=== PATIENT | male | born 1935 | race Caucasian/White ===

== ENCOUNTER 2023-12-04 07:15 | Outpatient (RCR) | payer MEDICARE, OTHER, SELFPAY | END 2023-12-04 09:12 | disposition home or self-care (01) | LOC: ANHCPREHAB 07:15 | PROVIDERS: PCP Internal Medicine | DX: Z95.2 Presence of prosthetic heart valve (principal) | CPT/HCPCS: 93798 ==

== ENCOUNTER 2025-05-13 07:06 | Observation (INO) | payer MEDICARE, OTHER, SELFPAY ==
[2025-05-13] VITALS (102 sets, daily range): BP systolic 97–141; BP diastolic 49–101; PULSE 60–224; RESP 14–33; TEMP 36.4–36.6; O2SAT 90–100; BMI 26.5
--- NOTE | ~2025-05-13 | XR_ITS ---
EXAMINATION: XR chest 1V portable COMPARISON: No comparisons available. HISTORY: RHONDA FINDINGS: Mild pulmonary venous congestion No pneumothorax. Mild cardiomegaly. Mediastinal and hilar contours are within normal limits. Bony thorax no acute abnormality. Miscellaneous: None Impression: Mild CHF Reviewed, dictated and finalized at location P. [employer]ICIAN Impression: Mild CHF
--- NOTE | 2025-05-13 07:21 | ECG_ITS ---
Test Date: 2025-05-13 07:22:40 Measurements Intervals Lucan Rate: 76 P: 48 DE: 206 QRS: -34 QRSD: 105 T: 71 QT: 368 QTc: 416 Interpretive Statements SINUS RHYTHM WITH FREQUENT SUPRAVENTRICULAR PREMATURE COMPLEXES LEFT AXIS DEVIATION BORDERLINE AV CONDUCTION DELAY CANNOT R/O SEPTAL INFARCT, AGE INDETERMINATE BORDERLINE ST-T WAVE ABNORMALITY- HIGH LATERAL LEADS BASELINE ARTIFACT- I, II, AVR, AVL, AVF, V4-V6 ABNORMAL ECG No previous ECG available for comparison Electronically Signed On 05-13-2025 07:55:10 AIR POLLUTION ANALYST by Iban Guy D.O.
[2025-05-13] MEDS: ETOMIDATE 20 MG/10 ML AMPUL (07:24)
[2025-05-13 07:37] LABS: Hematocrit 42.9 % (42.0-52.0); Hemoglobin 14.2 g/dL (14.0-18.0); Immature Granulocyte Percent A 0.7 % (0-0.5); Lymphocytes Absolute Auto 1.75 K/mm3 (0.9-3.2); Mean Corpuscular HGB Conc 33.1 g/dl (32-36); Mean Corpuscular Hemoglobin 31.7 pg (26-34); Mean Corpuscular Volume 95.8 fl (80-100); Nucleated Red Blood Cells Absolute Auto 0.000 K/mm3 (0.0-0.012); Nucleated Red Blood Cells Perc 0.0 % (0.0-0.2); Platelet Count Result 204 k/mm3 (150-375); Red Blood Count 4.48 M/mm3 (4.6-6.20); White Blood Count 8.3 K/mm3 (4.5-10.0)
--- NOTE | 2025-05-13 07:39 | PC.NURSE ---
upon arrival to the ED patient was placed on facility examiner where he was noted to have a heart rate in the 220s with runs of vtach. Patient was attached to lifepack with pads. EDP at bedside verbally ordered 10mg etomodate. patient was shocked with 150J at 0719. patient is currently awake and alert and oriented x 4 with a heart rate of 87, bp 109/71, respiratory rate of 14, spo2 97%. family at bedside at this time and given an update to care and patient condition
[2025-05-13 07:48] LABS: INR 1.3; Prothrombin Time 16.1 Seconds (11.1-14.7)
[2025-05-13 07:49] LABS: Partial Thromboplastin Time 31.4 Seconds (22.3-36.8)
[2025-05-13 08:14] LABS: Alanine Aminotransferase 28 U/L (6-50); Albumin Level 4.0 g/dL (3.5-5.1); Alkaline Phosphatase 77 U/L (38-126); Anion Gap 7 mmol/L (4-12); Aspartate Amino Transferase 29 U/L (17-59); Bilirubin,Total 0.6 mg/dL (0.2-1.3); Blood Urea Nitrogen 42 mg/dL (9-20); Calcium 8.9 mg/dL (8.4-10.2); Carbon Dioxide 20 mmol/L (22-30); Chloride 110 mmol/L (98-107); Estimated CRCL calculation 32 ml/min; Estimated Glomerular Filt Rate 43; Glucose 145 mg/dL (65-110); Potassium 3.8 mmol/L (3.4-5.0); Sodium 137 mmol/L (137-145); Total Protein 7.0 g/dL (6.3-8.2)
[2025-05-13 08:47] LABS: NT Pro B Type Natriuretic Pept 9200 pg/mL (19.9-100); Troponin I 0.147 ng/mL (0.000-0.034)
--- OUTSIDE RECORDS SUMMARY | 2025-05-13 08:47 | XMS_ITS | Clinical Summary ---
Author Organization [facility] Address [address] [place] [address] Care Team Providers Care Food And Nutrition Teacher Name Role Phone Georges Barfield MD Primary Care Provider Michelet Campos MD Unavailable [phone] Evangelista Cartagena DO Unavailable [phone] Source Comments [facility],non-owned Affiliates and Associated Physician Practices is amultiple site organization consisting of ambulatory clinics and hospital sitesin [place], [place], [place] and [place]. This disclosure is being madepursuant to the Care Everywhere program and may not contain all information available regarding this patient. Last updated 18.[facility] Allergies Active Allergy Reactions Criticality Noted Date Comments Barley Grass 09/01/2013 Gluten Meal Diarrhea Low 03/08/2020 Wheat Bran 09/01/2013 Medications * Be aware that medications may not be up to date on this document. Alwaysverify current medications with the patient. VITAMIN D, CHOLECALCIFEROL, PO Take 1,000 Units by mouth once daily Active cyanocobalamin (VITAMIN B-12) 100 MCG tablet Take 100 mcg by mouth once daily. Active calcium-vitamin D (CALTRATE PLUS D) 600-200 MG-UNIT tablet Take 1 Tab by mouth 2 times daily Active calcium polycarbophil (FIBERCON) 625 MG tablet Take 625 mg by mouth at bedtime Active metoprolol tartrate (LOPRESSOR) 25 MG tablet Take 12.5 mg by mouth 2 times daily Active acetaminophen (TYLENOL) 500 MG tablet Take 500 mg by mouth 2 times daily as needed for Fever or Pain Maximum allowable Acetaminophen amount = 4 Grams (4000 mg) / 24 hours. Active Cinnamon 500 MG Take 500 mg by mouth 2 times daily Active famotidine (PEPCID) 40 MG tablet 08/25/19 22 Active simvastatin (ZOCOR) 40 MG tablet 1 tablet at bedtime 05/03/20 21 Active Melatonin 5 MG 11/09/19 21 Active Kalida-3 1000 MG 2 times daily Active traMADol (ULTRAM) 50 MG tablet 12/08/19 21 Active tamsulosin (FLOMAX) 0.4 MG capsule 08/25/19 22 Active gabapentin (Neurontin) 100 MG capsule Take 1 (one) capsule by mouth 3 times daily 02/04/20 24 Active lisinopril (Prinivil; Zestril) 40 MG tablet Take 1 (one) tablet by mouth once daily 02/03/20 24 Active omeprazole (PriLOSEC) 40 MG capsule 1 (one) capsule 05/30/20 23 Active meloxicam (Mobic) 15 MG tablet Take 1 (one) tablet by mouth once daily 30 tablet 5 06/30/19 25 Active Active Problems Problem Noted Date Diagnosed Date Left sided sciatica 10/04/2021 Hip pain 10/04/2021 Presence of right artificial knee joint 05/27/20 18 Primary osteoarthritis of right knee 06/20/2015 Osteoarthrosis involving lower leg 09/01/2013 Overview (09/03/2015): 2015 [facility] 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 Overview (09/03/2015): 2015 [facility] Social History Tobacco Use Types Packs/Day Years Used Date Smoking Tobacco: Former Cigarettes 0 Q uit: 06/10/1979 Smokeless Tobacco: Never Tobacco Cessation:Counseling Given: Not Answered Alcohol Use Standard Drinks/Week Comments Yes 10 (1 standard drink = 0.6 oz pu re alcohol) 10/week PHQ-2 Answer Date Recorded Patient Health Questionnaire-2 Score 0 06/30/2024 Sex and Gender Information Value Date Recorded Sex Assigned at Not on file Legal Sex Male 10:25 AM INFUSION RN Gender Identity Not on file Sexual Orientation Not on file Last Filed Vital Signs Vital Sign Reading Time Taken Comments Blood Pressure 155/74 05/28/2015 7:38 AM INFUSION RN Pulse 86 05/28/2015 7:38 AM INFUSION RN Temperature 36.8 C (98.3 F) 05/28/2015 7:38 AM INFUSION RN Respiratory Rate 20 05/28/2015 7:38 AM INFUSION RN Oxygen Saturation 91% 05/28/2015 7:38 AM INFUSION RN Inhaled Oxygen Concentration - - Weight 89.8 kg (198 lb) 06/30/2024 11:17 AM INFUSION RN Height 180.3 cm (5' 11) 06/30/2024 11:17 AM INFUSION RN Body Mass Index 27.62 06/30/2024 11:17 AM INFUSION RN Plan of Treatment Health Maintenance Due Date Last Done Comments MEDICARE AWV 12 MONTHS 1936 DTAP/TDAP/TD VACCINES (1 - Tdap) 09/22/1955 PNEUMOCOCCAL VACCINE 50+ (1 of 1 - PCV) 1986 ZOSTER VACCINE (1 of 2) 1986 Respiratory Syncytial Virus (RSV) Vaccine Pt: or over 60 yrs (1 - 1-dose 75+ series) 09/22/2011 COVID-19 VACCINE ( season) 2025 03/08/2021, 08/16/2020, 07/19/2020 INFLUENZA VACCINE (#1) 2025 , 04/07/2019, 03/20/2018, Additional history exists DEPRESSION SCREENING Completed 06/30/2024 HEPATITIS B VACCINE Aged Out No longe r eligible based on patient's age to complete this topic HIB VACCINE Aged Out No longer eligi ble based on patient's age to complete this topic HPV VACCINE Aged Out No longer eligi ble based on patient's age to complete this topic MENINGOCOCCAL (Group B) VACCINE SHARED DECISION-MAKING Aged Out No longer eligible based on patient's age to complete this topic MENINGOCOCCAL GROUPS A/C/Y/W VACCINE Aged Out No longer eligible based on patient's age to complete this topic Medical Devices Implanted Type Area Presiding Steward Device Identifier Shelf Expiration Date Model / Serial / Lot Valentin [employer] [place] Hv Implanted:Qty: 1 on 05/26/2015 by Michelet Campos MD at [facility] Right: Knee [employer] 01/07/2017 [id number] / / [id number] Implt Fem Cr R 72.5mm Implanted:Qty: 1 on 05/26/2015 by Michelet Campos MD at [facility] Right: Knee [employer] 03/30/2025 [id number] / / [id number] Ty Tibial I Beam Fix Bar 83mm Implanted:Qty: 1 on 05/26/2015 by Michelet Campos MD at [facility] Right: Knee [employer] 02/07/2025 [id number] / / [id number] Butn Pat Ar[employer] Wire Polyeth Sm 31 X 8mm Implanted:Qty: 1 on 05/26/2015 by Michelet Campos MD at [facility] Right: Knee [employer] 02/10/2020 [id number] / / [id number] Bridg Tib Ant Stblzd 12mm X 83mm Implanted:Qty: 1 on 05/26/2015 by Michelet Campos MD at [facility] Right: Knee [employer] 06/20/2019 [id number] / / [id number] [place] [address] MEDICARE Advance Directives Documents on File Type Date Recorded Patient Database Technician Expl anation Adv Directive/Living Will/POA 05/30/2015 2:46 PM * Full Code (Latest Code Status on File) Date Activated Date Inactivated Comments 05/26/2015 11:57 AM 05/28/2015 12:51 PM Care Teams Food And Nutrition Teacher Relationship Specialty Start Date End Date Georges Barfield MD [address] [place], [id number] PCP - General Internal Medicine 09/01/13 [place] [address] [place] [id number] Orthopedic Surgery 09/01/13 [place] [address] [place] [id number] Orthopedic Surgery 12/01/14
--- OUTSIDE RECORDS SUMMARY | 2025-05-13 08:47 | XMS_ITS | Clinical Summary ---
Author Organization [facility] Address [address] [place] [address] Care Team Providers Care Corporate General Manager Name Role Phone Georges Barfield MD Primary Care Provider [phone] Lilia Welsh MD Unavailable [phone] Celena Kitchen MD Unavailable Kg Marie MD Unavailable [phone] Allergies Active Allergy Reactions Criticality Noted Date Comments Gluten Diarrhea Low Medications cyanocobalamin (Vitamin B-12) 1,000 mcg tablet Take 1 tablet (1,000 mcg total) by mouth daily Active polycarbophil (FIBERCON) 625 mg tablet Take 1 tablet (625 mg total) by mouth nightly Active cholecalciferol (VITAMIN D-3) 25 mcg (1,000 unit) tablet Take 1 tablet (1,000 Units total) by mouth daily Active omega 1-edx-rvd-fish oil 1,000 mg (120 mg-180 mg) capsule Take 1 capsule (1,000 mg total) by mouth 2 (two) times a day Active fluocinonide (LIDEX) 0.05 % external solution Apply 1 Application topically daily as needed 11/22/19 22 Active ketoconazole (NIZORAL) 2 % shampoo Apply 1 Application topically daily as needed 01/16/20 23 Active amoxicillin (AMOXIL) 500 mg tablet/capsuleIndi cations:Prophylaxi s, Medical Take 4 caps (2000 mg) 1 hour prior to any dental appointment including routine cleaning. 8 tablet/caps ule 2 07/30/19 24 Active Mobic 15 mg tablet Take 1 tablet (15 mg total) by mouth Daily for 1 week of the month 06/30/19 25 Active omeprazole (PriLOSEC) 40 mg capsuleIndications :Gastroesophageal reflux disease without esophagitis Take 1 capsule (40 mg total) by mouth daily 90 capsule 3 10/03/19 25 Active gabapentin (NEURONTIN) 100 mg capsuleIndications :Cervical spondylosis Take 1 capsule (100 mg total) by mouth 3 (three) times a day 270 capsule 3 10/03/19 25 Active calcium carbonate-vit D3-min 600 mg calcium- 200 unit tablet Take 1 tablet by mouth 2 (two) times a day Active apixaban (ELIQUIS) 5 mg tabletIndications: atrial fibrillation Take 1 tablet (5 mg total) by mouth every 12 (twelve) hours 180 tablet 2 11/14/19 25 Active metoprolol XL (TOPROL-XL) 25 mg extended release tablet Take 1 tablet (25 mg total) by mouth daily 30 tablet 11 12/04/19 25 026 Active metroNIDAZOLE (METROGEL) 0.75 % gelIndications:Acn e Rosacea Apply twice daily to rosacea 45 g 5 02/02/20 25 026 Active tamsulosin (FLOMAX) 0.4 mg extended release capsuleIndications :Benign prostatic hyperplasia with weak urinary stream Take 1 capsule (0.4 mg total) by mouth nightly 90 capsule 3 02/02/20 25 Active Additional Information Patient not taking.Reported on 02/03/2025 simvastatin (ZOCOR) 20 mg tabletIndications: Hyperlipidemia, unspecified hyperlipidemia type Take 1 tablet (20 mg total) by mouth nightly 90 tablet 3 02/02/20 25 Active lisinopriL (PRINIVIL,ZESTRIL) 40 mg tabletIndications: Primary hypertension Take 1 tablet (40 mg total) by mouth daily 90 tablet 3 02/02/20 25 Active furosemide (LASIX) 20 mg tablet Take 1 tablet (20 mg total) by mouth daily 90 tablet 3 02/06/20 25 Active budesonide EC (ENTOCORT EC) 3 mg 24 hr capsuleIndications :Acute diarrhea,Microscop ic colitis, unspecified microscopic colitis type Take 3 capsules (9 mg total) by mouth every morning for 30 days, THEN 2 capsules (6 mg total) every morning for 14 days, THEN 1 capsule (3 mg total) every morning for 7 days. 125 capsule 02/23/20 25 Active finasteride (PROSCAR) 5 mg tablet TAKE 1 TABLET BY MOUTH NIGHTLY AT BEDTIME. 90 tablet 03/22/20 25 Active cholestyramine (QUESTRAN) 4 gram packetIndications: Microscopic colitis, unspecified microscopic colitis type Take 5 packets by mouth daily Take 5 packets by mouth daily No other medications within an hour before or 4 hours after. 150 packet 5 04/26/20 25 026 Active cholestyramine (QUESTRAN) 4 gram packetIndications: Microscopic colitis, unspecified microscopic colitis type Take 5 packets by mouth daily Take 5 packets by mouth daily No other medications within an hour before or 4 hours after. 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 From an anatomic perspective, Mr. Chambers has a OBDULIA-candidate mitral valve. We can't comment on the surgical feasibility off > 90% but given his age and comorbidity it is unlikely we go down the surgical MV repair for asymptomatic severe MR. The symptoms status is the crux of the issue here, as it is unclear whether he is asymptomatic at all. His exertional tolerance has been stable subjectively. We did elicit some PND but no other symptoms concerning for CHF. As such, we elect to not proceeding with OBDULIA at this point. We will continue to monitor his symptoms and LV systolic function/morphology in a few months. If he were to develop definitive symptoms or drop in LVEF/increased LV dimensions then we will consider OBDULIA at that point. Right knee injury, sequela 03/18/2020 Assessment & Plan (03/18/2020 9:21 AM CDT): - PT ordered and sent - Increase the tylenol to 600mg every 8 hours (three times a day) - cont the Voltaren 4 times a day Use Ice three times a day - Use stretching three times a day Musculoskeletal Pain Assessment: Musculoskeletal in nature, likely muscle spasm or muscle strain. Reassuring exam, no red flags, no role for imaging at this time. Musculoskeletal Pain Plan: Musculoskeletal types of injuries do best with daily around the clock treatment and can persist for roughly 4-6 weeks. Do not overuse the area of concern and utilize the the symptom management below. If you are not bit by bit better in 4-6 weeks please make a return visit for follow-up for the next steps. Physical Therapy/Imaging and other testing or therapy will be done on an individual basis as needed. For more help with stretching/exercises check out [facility] exercises via Youtube. Symptom management includes: -Tylenol (acetaminophen) 1000mg every 8 hours as needed for pain. Do not use when drinking alcohol as both metabolize through the liver. (Max dose is 600mg every 8 hours) Consistency is patel, but try NOT to use more than 3 weeks at at time. (Only use the dose you need for the control of the pain- if 325mg every 8 hours works then use the 325mg every 8 hours). - Diclofenac gel to be used topically as needed on affected area for pain - Rest area. If it hurts do not continue to do that activity, do not overexert, but stay as physically active as possible. Your muscles will stiffen up if you do not use them. - Heat and/or Ice to the area at least twice a day for 20 minutes. Doing this more often is encouraged. Typically will use Heat for muscle spasms and Ice with joints and swelling, but either or both can be used depending on your preference. (Check into the heat stick on patches at our pharmacy as these can be very convenient). If you use a heating pad, great- just do not sleep with the heating pad as it may burn you. - Continue to do gentle stretching exercises at least twice a day, best if after the heat/ice application. - Can use Biofreeze or [place], sold over the counter, follow directions on the medication. 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 DRIVER): History of PSVT-F/W Dr Welsh On metoprolol Monitor on telemetry Primary osteoarthritis of right knee 06/20/2015 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 Overview (12/30/2017): Overview: 2015 IMO Updt Interstitial cystitis 07/24/2013 Gastroesophageal reflux disease without esophagi tis 05/25/2013 Assessment & Plan (06/24/2023 8:29 AM 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 DRIVER): Continue PPI Hyperlipidemia 05/25/2013 Assessment & Plan (06/24/2023 8:29 AM 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 DRIVER): Continue statin Primary hypertension 05/25/2013 Assessment & Plan (06/24/2023 8:29 AM 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 DRIVER): Goal SBP <160 and MAP >65 Restart lisinopril and toprol as BP allows Osteopenia 05/25/2013 Exomphalos 12/01/2012 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 Celiac disease 03/14/2012 Bronchiectasis without complication Resolved Problems Problem Noted Date Diagnosed Date Resolved Date New onset a-fib 11/12/2024 02/01/2025 Atrial fibrillation with RVR 07/03/2024 08/03/2024 Encounters Date Type Department Care Team Description 05/12/2025 Telephone [facility] Cardiology [address] [place] [address] [place] [address] Kg Marie MD Shortness of Breath 02/26/2025 9:00 AM CDT Procedure visit [facility] Otolaryngology [address]th [place] [address] [place] [phone] Zuleyka Jean Baptiste Au.D. Asymmetrical sensorineural hearing loss (Primary Dx) 02/22/2025 Orders Only [facility] Gastroenterology [address] [place] [address] [address] [place] [address] [place] [phone] Marleny aVsquez LPN Acute diarrhea (Primary Dx); Microscopic colitis, unspecified microscopic colitis type 02/19/2025 8:15 AM CDT Lab [address] [address] Acute diarrhea 02/18/2025 Telephone [facility] Gastroenterology [facility] [facility] [address] [place] [address] [place] [phone] Marleny Vasquez LPN from Last 3 Months Immunizations Immunization Administration Dates Next Due Influenza, Quad, Adjuvantate d, Intramuscular 03/15/2023,04/02/2022 Influenza, Quadrivalent, Hig h Dose, Preservative Free, Intrr 03/08/2021,03/30/2020 Influenza, Trivalent, Adjuva nted, Intramuscular 03/20/2018 Influenza, Trivalent, High D ose, Split, Preservative Free, Intramuscular 04/07/2019,02/29/2016,04/01/2015 Influenza, Trivalent, Preser vative Free, Intramuscular 04/04/2013 Influenza, Unspecified 03/30/2024,03/15/2023 PPD TEST 08/16/2016 Pfizer SARS-CoV-2 Monovalent Vaccination (12+ Yrs) PURPLE 03/08/2021,08/16/2020,07/19/2020 Pneumococcal Conjugate PCV 13 12/30/2014 Pneumococcal Conjugate Pcv20 05/14/2023 Pneumococcal Polysaccharide PPV23 06/10/2002 RSV Vaccine, Pref, Recombina nt, Subunit, Adjuvanted, PF, IM (Arexvy) 04/19/2023 Tdap 08/05/2023,01/29/2013,06/09/1999 ZOSTER LIVE 08/06/2011,05/25/2011,05/10/2011 ZOSTER Recombinant 06/24/2019,01/30/2019 Surgical History Surgery Date Site/Laterality Comments MA TONSILLECTOMY PRIMARY/SECONDARY <AGE 12 TOTAL KNEE ARTHROPLASTY Right CATARACT EXTRACTION Bilateral UMBILICAL HERNIA REPAIR HYDROCELE EXCISION / REPAIR Right Medical History Medical History Date Comments HL (hearing loss) Hypertension Atrial fibrillation (HCC) BPH (benign prostatic hyperplasia) SKY (obstructive sleep apnea) Mitral regurgitation Hyperlipidemia Awareness under anesthesia PFO (patent foramen ovale) CKD (chronic kidney disease) stage 2, GFR 60-89 ml/min 11/12/2024 Family History Medical History Relation Name Comments Celiac disease Brother Diabetes type I Daughter Hypothyroidism Daughter Rheum arthritis Daughter Hypothyroidism Grandchild Colon cancer Mother Celiac disease Son Diabetes type I Son Anesthesia problems Neg Hx Relation Name Status Comments Brother Daughter Grandchild Alive Mother Son Social History Tobacco Use Types Packs/Day Years Used Date Smoking Tobacco: Former Cigarettes 1 31 1 957 - 1987 Smokeless Tobacco: Never Tobacco Cessation:Counseling Given: Not Answered Alcohol Use Standard Drinks/Week Comments Yes 2 (1 standard drink = 0.6 oz pur e alcohol) PHQ-2 Answer Date Recorded PHQ-2 Total Score (If total score is 3 or more points, staff should administer the PHQ-9) 0 01/25/2025 AUDIT-C Answer Date Recorded Q1: How often do you have a drink containing alc ohol? 2-3 times a week 02/01/2025 Q2: How many drinks containi ng alcohol do you have on a typical day when you are drinking? 1 or 2 02/01/2025 Frequency of Binge Drinking Not on file 01/09 Personal Safety Answer Date Recorded Have you ever been in or are you currently in a harmful physical or emotional relationship or is someone making you feel afraid or unsafe? 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 Not on file Not on file N ot on file Last Filed Vital Signs Vital Sign Reading Time Taken Comments Blood Pressure 140/80 02/03/2025 9:18 AM CDT Pulse 61 02/03/2025 9:18 AM CDT Temperature 36.8 C (98.3 F) 11/13/2024 12:28 PM CDT Respiratory Rate 16 11/13/2024 12:28 PM CDT Oxygen Saturation 98% 02/03/2025 9:18 AM CDT Inhaled Oxygen Concentration - - Weight 89.8 kg (198 lb) 02/03/2025 9:18 AM CDT Height 180.3 cm (5' 11) 02/01/2025 8:21 AM CDT Body Mass Index 27.62 02/01/2025 8:21 AM CDT Plan of Treatment Health Maintenance Due Date Last Done Comments Hepatitis B Screening 1953 Covid-19 Vaccine (2024- 6 season) 2025 03/23/2024, 03/15/2023, 04/02/2022, Additional history exists Depression Screening 02/01/2026 02/01/2025, 02/03/20 Fall Risk Assessment 02/01/2026 02/01/2025, 11/13/2024, 02/03/2024 Well Visit 65+ 02/01/2026 02/01/2025, 01/09, 01/21/2023, Additional history exists DTaP/Tdap/Td Vaccine (4 - Td or Tdap) 08/05/2033 08/05/2023, 01/29/2013, 06/09/1999 Zoster Vaccine Completed 06/24/2019, 01/09, 08/06/2011, Additional history exists Pneumococcal vaccine 65+ Completed 023, 12/30/2014, 06/10/2002 Influenza Vaccine Completed 03/12/2025, , 03/15/2023, Additional history exists Goals Goal Patient Goal Type Associated Problems Recent Progress Patient-Stated? Author CCM Chronic Pain Care Plan Chronic Care Management No Brendel, Sharifa Jennifer, RN Note: Problem: Chronic Pain Goals: 1. Minimize further functional decline 2. Maximize quality of life 3. Control pain Strategies: - Activity/exercise program recommendation - Conservative stepwise pain medicine strategy with multi-disciplinary approach - Recommend healthy lifestyle strategies and compensatory methods as needed Medical Devices Implanted Type Area Enterprise Architect Manager Device Identifier Shelf Expiration Date Model / Serial / Lot [employer] Mitraclip G4 Xtw Cardiac Valve Clip [id number] - [id number] - [id number] Implanted:Qty : 1 on 06/24/2023 by Kg Marie MD at [facility] Clip N/A: Mitral Valve [employer] 10/31/2023 [id number] / [id number] / [id number] Other - See Comments Other - see comments Right: Knee [employer] Device Clsr Perclose Prostyle Sut-Mediatd Closure-Repai r Sys [id number] - [id number] - [id number] Implanted:Qty : 1 on 06/24/2023 by Kg Marie MD at [facility] Vascular Closure Device Left: Femoral Vein [employer] 01/07/2025 [id number] / [id number] / [id number] [employer] Mitraclip Implant G4 System [id number] - [id number] Implanted:Qty : 1 on 06/24/2023 by Kg Marie MD at [facility] N/A: Mitral Valve [employer] [id number] / / Procedures Procedure Name Priority Date/Time Associated Diagnosis Comments STOOL CULTURE Routine 02/19/2025 8:45 AM CDT Acute diarrhea C. DIFFICILE TESTING Routine 02/19/2025 8:45 AM CDT Acute diarrhea from Last 3 Months Results * C. difficile testing Stool (02/19/2025 8:45 AM CDT) C. diff result Negative, DNA Negative , DNA C. diff interp Negative for toxigenic Clostridioides (Clostridium) difficile. Analysis performed by detection of gene(s) encoding C. difficile toxin(s). The nucleic acid detection assay used is cleared by the [place] Food and Drug administration and its performance characteristics have been verified by the performing laboratory. NUSRAT GUTIERREZ Stool 02/19/2025 8:45 AM CDT 02/19/2025 11:17 AM CDT Keenan Ley MD LAB MICROBIOLOGY - [facility] Final Result Performing Organization Address [facility] Co de Phone Number NUSRAT [address] [facility] [place] [address] * Stool culture Stool Rectum (02/19/2025 8:45 AM CDT) Direct Specimen Exam Shiga Toxin Testing: Antigen detection assay for Shiga-toxin NEGATIVE for Shiga Toxin 1 and Shiga Toxin 2. Comment:Testing performed by : [facility], [address] [place] [address]., [id number] Report Final Report: No growth of enteric bacterial pathogens NUSRAT Comment:Testing performed by : [facility], [address] [place]., [address] Stool (Rectum) 02/19/2025 8: 45 AM CDT 02/20/2025 11:01 AM CDT Narrative NUSRAT - 02/24/2025 12:30 PM CDT Testing performed by [facility] Microbiology Laboratory ([phone]). Routine stool cultures include procedures to detect Salmonella, Shigella, Edwardsiella, Aeromonas, Pleisiomonas, Campylobacter, Yersinia, E. coli O157, and Shiga-like toxins. Vibrio is cultured only upon special request. If Vibrio is suspected, please call the laboratory at [phone]. Interpretive data was last updated October 15, 2016. Keenan Ley MD LAB MICROBIOLOGY - [facility] Final Result Performing Organization Address City/[facility]/ZIP Co de Phone Number NUSRAT [address] [place] [address] [place] [address] from Last 3 Months Insurance MEDICARE FOR LIFE MEDICARE FOR LIFE MEDICARE FOR LIFE FOR LIFE MEDICARE MEDICARE FOR [facility]IC[facility] FOR LIFE Advance Directives For more information, please contact: [phone] * Full Code (Latest Code Status on File) Date Activated Date Inactivated Comments 11/12/2024 5:33 PM 11/13/2024 5:30 PM * Full Code Date Activated Date Inactivated Comments 06/25/2023 8:18 AM 06/25/2023 7:17 PM Care Teams Corporate General Manager Relationship Specialty Start Date End Date Georges Barfield MD PCP - General 01/03/17 Lilia Welsh MD Referring Physician Cardiology 08/30/21 Celena Kitchen MD Surgeon Cardiothoracic Surgery 06/25/23 Kg Marie MD Consulting Physician Cardiology 06/25/23
--- OUTSIDE RECORDS SUMMARY | 2025-05-13 08:47 | XMS_ITS | Encounter Summary ---
Author Organization [facility] Address [address] [place] [address] Care Team Providers Care Tile Applicator Name Role Phone Georges Barfield MD Primary Care Provider [phone] Lilia Welsh MD Unavailable [phone] Celena Kitchen MD Unavailable Kg Marie MD Unavailable [phone] Encounter Details Date Type Department Care Team (Late st Contact Info) Description 11/19/2024 Documentation [facility] [address] [address] Georges Barfield MD [address] [place] [id number] Social History Tobacco Use Types Packs/Day Years Used Date Smoking Tobacco: Former Cigarettes 31 1 957 - 1988 Smokeless Tobacco: Never Alcohol Use Standard Drinks/Week Comments Yes 10 (1 standard drink = 0.6 oz pu re alcohol) AUDIT-C Answer Date Recorded Q1: How often do you have a drink containing alc ohol? 2-3 times a week 06/24/2023 Q2: How many drinks containi ng alcohol do you have on a typical day when you are drinking? 1 or 2 06/24/2023 Q3: How often do you have si x or more drinks on one occasion? Never 06/24/2023 PHQ-2 Answer Date Recorded PHQ-2 Total Score (If total score is 3 or more points, staff should administer the PHQ-9) 0 01/30/2024 Personal Safety Answer Date Recorded Have you ever been in or are you currently in a harmful physical or emotional relationship or is someone making you feel afraid or unsafe? 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 Author CCM Chronic Pain Care Plan Chronic Care Management Sharifa Mathews RN Note: Problem: Chronic Pain Goals: 1. Minimize further functional decline 2. Maximize quality of life 3. Control pain Strategies: - Activity/exercise program recommendation - Conservative stepwise pain medicine strategy with multi-disciplinary approach - Recommend healthy lifestyle strategies and compensatory methods as needed documented as of this encounter Visit Diagnoses Not on filedocumented in this encounter Additional Health Concerns Infection Onset Date Last Indicated Resolved Time C. difficile suspected 02/18/2025 02/19/202502/19 12:28 PM CDT documented as of this encounter Care Teams Tile Applicator Relationship Specialty Start Date End Date Georges Barfield MD PCP - General 01/03/17 Lilia Welsh MD Referring Physician Cardiology 08/30/21 Celena Kitchen MD Surgeon Cardiothoracic Surgery 06/25/23 Kg Marie MD Consulting Physician Cardiology 06/25/23 documented as of this encounter
--- OUTSIDE RECORDS SUMMARY | 2025-05-13 08:47 | XMS_ITS | Encounter Summary ---
Author Organization [facility] Address [address] [place] [address] Phone Care Team Providers Care Warehouse Insulation Worker Name Role Phone Georges Barfield MD Primary Care Provider [phone] Lilia Welsh MD Unavailable [phone] Celena Kitchen MD Unavailable Kg Marie MD Unavailable [phone] Reason for Visit * Reason Onset Date Comments Shortness of Breath 05/12/2025 Encounter Details Date Type Department Care Team (Late st Contact Info) Description 05/12/2025 Telephone [facility] Medicine Cardiology [address] [facility] Advanced Medicine 8th [place] [address] [place] [address] Kg Marie MD [address] [place] [address] Shortness of Breath Social History Tobacco Use Types Packs/Day Years Used Date Smoking Tobacco: Former Cigarettes 31 1 957 - 1987 Smokeless Tobacco: Never Alcohol Use Standard Drinks/Week Comments Yes 2 [...] on file Legal Sex Male 2:09 AM SENIOR SCIENTIST Gender Identity Male 06/29/2019 9:50 PM SENIOR SCIENTIST Sexual Orientation Straight 06/29/2019 9: 50 PM SENIOR SCIENTIST Occupation Industry Job Start Date Job End Date 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 Told to call back if not being seen and/or new or increasingsymptoms OR SCIENTIST * Telephone Encounter - Thuy Miner RN - 05/12/2025 11:51 AM SENIOR SCIENTIST S/w Dr. Marie about patient in clinic- fu pcp to investigate new onset SOB yestreday OR SCIENTIST * Telephone Encounter - Thuy Miner RN - 05/12/2025 10:46 AM SENIOR SCIENTIST S/w patient 05/11 around 1300 really SOB- eating lunch, shoveling snow in am but was not fatigued. Worsening SOBthrough day and Insomnia. Exercises religiously 3 week. No BP readings, apple watch-HR was up but not over 100. 05/12 SOB not near as bad today as yesterday evening. Wt-He has not checked weights daily- 2-3 x week. Staying around 190 no signs of swelling. Normal urination with Lasix. Insomnia-He thinks circadian rhythm off- insomnia throwing off his days. No diet, med changes, or recent testing/procedures. OR SCIENTIST * Telephone Encounter - Yokasta Espinoza - 05/12/2025 10:10 AM CST Cynthia Pt states he started to feel SOB yesterday and it got worse throughout the afternoon, then this morning was better but still feels a little short. Please call. OR SCIENTIST documented in this encounter Plan of Treatment Not on file documented as of this encounter Goals Goal Patient Goal Type Associated Problems Recent Progress Patient-Stated? Author CCM Chronic Pain Care Plan Chronic Care Management No Sharifa Arthur RN Note: Problem: Chronic Pain Goals: 1. Minimize further functional decline 2. Maximize quality of life 3. Control pain Strategies: - Activity/exercise program recommendation - Conservative stepwise pain medicine strategy with multi-disciplinary approach - Recommend healthy lifestyle strategies and compensatory methods as needed documented as of this encounter Visit Diagnoses Not on filedocumented in this encounter Care Teams Warehouse Insulation Worker Relationship Specialty Start Date End Date Georges Barfield MD PCP - General 01/03/17 Lilia Welsh MD Referring Physician Cardiology 08/30/21 Celena Kitchen MD Surgeon Cardiothoracic Surgery 06/25/23 Kg Marie MD Consulting Physician Cardiology 06/25/23 documented as of this encounter
--- OUTSIDE RECORDS SUMMARY | 2025-05-13 08:47 | XMS_ITS | Encounter Summary ---
Author Organization [facility] Address [address] [place] [address] Care Team Providers Care Surface Miner Name Role Phone Georges Barfield MD Primary Care Provider [phone] Lilia Welsh MD Unavailable [phone] Celena Kitchen MD Unavailable Kg Marie MD Unavailable [phone] Reason for Visit * Reason Onset Date Comments Med Refill 12/31/2023 Encounter Details Date Type Department Care Team (Late st Contact Info) Description 12/31/2023 Telephone [facility] [place] [facility] [address] [facility] Advanced Medicine [address] [place] [address] Melanie Ann MD PhD [address] [place] [address] Med Refill Social History Tobacco Use Types Packs/Day Years Used Date Smoking Tobacco: Former Cigarettes 31 957 - 1987 Smokeless Tobacco: Never Alcohol [...] more drinks on one occasion? Never 06/24/2023 Personal Safety Answer Date Recorded Have you ever been in or are you currently in a harmful physical or emotional relationship or is someone making you feel afraid or unsafe? 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
--- OUTSIDE RECORDS SUMMARY | 2025-05-13 08:47 | XMS_ITS | Encounter Summary ---
Author Organization [facility] Address [address] [place] [address] Care Team Providers Care Food And Beverage Associate Name Role Phone Georges Barfield MD Primary Care Provider Michelet Campos MD Unavailable [phone] Evangelista Cartagena DO Unavailable [phone] Encounter Details Date Type Department Care Team (Late st Contact Info) Description 06/09/2016 Therapy Visit [facility] Orthopedics [address] [facility] [address] [place] [address] [place] [address] [address] Social History Tobacco Use Types Packs/Day Years Used Date Smoking Tobacco: Former Cigarettes 0 Q uit: 06/10/1979 Alcohol Use Standard Drinks/Week Comments Yes 0 (1 standard drink = 0.6 oz pur e alcohol) social drinking Sex and Gender Information Value Date Recorded Sex Assigned at Not on file Legal Sex Male 10:25 AM FLOOR COVERING PRINTER ASSISTANT Gender Identity Not on file Sexual Orientation Not on file documented as of this encounter Functional Status * Is person deaf or have serious hearing difficulty? Answer Date of Assessment Author No 05/26/2015 8:10 AM Flaco Sosa RN * Is person blind or have serious difficulty seeing? Answer Date of Assessment Author No 05/26/2015 8:10 AM Flaco Sosa RN * Does person have serious difficulty walking/climbing stairs? Answer Date of Assessment Author No 05/26/2015 8:10 AM Flaco Sosa RN * Does person have difficulty dressing/bathing? Answer Date of Assessment Author No 05/26/2015 8:10 AM Flaco Sosa RN * Does person have difficulty doing errands alone? Answer Date of Assessment Author No 05/26/2015 8:10 AM Flaco Sosa RN documented as of this encounter Mental Status * Does person have difficulty concentrating/remembering/making decisions? Answer Entry Date Author No 05/26/2015 8:10 AM Flaco Sosa RN documented in this encounter Plan of Treatment Not on file documented as of this encounter Visit Diagnoses Not on filedocumented in this encounter Care Teams Food And Beverage Associate Relationship Specialty Start Date End Date Georges Barfield MD [address] [facility], [address] PCP - General Internal Medicine 09/01/13 [place] [address] [place] [address] Orthopedic Surgery 09/01/13 [place] [address] [place] [address] Orthopedic Surgery 12/01/14 documented as of this encounter
--- OUTSIDE RECORDS SUMMARY | 2025-05-13 08:47 | XMS_ITS | Encounter Summary ---
Author Organization [facility] Address [address] [place] [address] Phone Care Team Providers Care On Site Nurse Name Role Phone Georges Barfield MD Primary Care Provider [phone] Lilia Welsh MD Unavailable [phone] Celena Kitchen MD Unavailable Kg Marie MD Unavailable [phone] Encounter Details Date Type Department Care Team (Latest Contact Info) Description 05/20/2019 Orders Only [facility] SLEEP Scanning, Provider Social History Tobacco Use Types Packs/Day Years Used Date Smoking Tobacco: Former Cigarettes Q uit: 1988 Smokeless Tobacco: Never Alcohol Use Standard Drinks/Week Comments Yes 10 (1 standard drink = 0.6 oz pu re alcohol) Sex and Gender Information Value Date Recorded Sex Assigned at Not on file Legal Sex Male 2:09 AM CONSUMER SERVICES CONSULTANT Gender Identity Male 06/29/2019 9:50 PM CONSUMER SERVICES CONSULTANT Sexual Orientation Straight 06/29/2019 9: 50 PM CONSUMER SERVICES CONSULTANT 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 Industry Job Start Date Job End Date 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 on file Not on file N ot on file documented as of this encounter Functional Status * BP Location Answer Date of Assessment Author Left arm 05/20/2019 9:34 AM CONSUMER SERVICES CONSULTANT Sunni Madsen RMA * BP Location Answer Date of Assessment Author Left arm 05/20/2019 9:34 AM CONSUMER SERVICES CONSULTANT Sunni Madsen RMA documented as of this encounter Plan of Treatment Not on file documented as of this encounter Procedures Procedure Name Priority Date/Time Associated Diagnosis Comments SLEEP LAB/STUDY - RESULT 05/20/2019 documented in this encounter Results * SLEEP LAB/STUDY - RESULT (05/20/2019) us Provider Scanning Final Result documented in this encounter Visit Diagnoses Not on filedocumented in this encounter Additional Health Concerns Infection Onset Date Last Indicated Resolved Time Tuberculosis (rule out) Comment:IP review: history of EBNJAMIN. No precautions needed Cher Sorto 06/06/2020 06/05/2020 06/05/2020 06/06/2020 9:[address] C. difficile suspected 02/18/2025 02/19/202502/19 12:28 PM CDT documented as of this encounter Care Teams On Site Nurse Relationship Specialty Start Date End Date Georges Barfield MD PCP - General 01/03/17 Lilia Welsh MD Referring Physician Cardiology 08/30/21 Celena Kitchen MD Surgeon Cardiothoracic Surgery 06/25/23 Kg Marie MD Consulting Physician Cardiology 06/25/23 documented as of this encounter
[2025-05-13] MEDS: FUROSEMIDE INJ 40 MG/4 ML VIAL IV PUSH (09:02)
--- NOTE | 2025-05-13 10:55 | ECG_ITS ---
Test Date: 2025-05-13 11:05:47 Measurements Intervals [place] Rate: 65 P: -19 SC: 164 QRS: -35 QRSD: 100 T: 68 QT: 428 QTc: 446 Interpretive Statements SINUS RHYTHM WITH OCCASIONAL VENTRICULAR PREMATURE COMPLEXES WITH OCCASIONAL SUPRAVENTRICULAR PREMATURE COMPLEXES LEFT AXIS DEVIATION CANNOT R/O SEPTAL INFARCT, AGE INDETERMINATE NONSPECIFIC ST-T WAVE ABNORMALITY- LAT/HIGH LAT LEADS BORDERLINE ECG Compared to ECG 05/13/2025 07:22:40 NO SIGNIFICANT CHANGE Electronically Signed On 05-13-2025 11:53:44 FASHION DESIGN PROFESSOR by Iban Guy D.O.
--- NOTE | 2025-05-13 10:59 | ED.SOB ---
HPI - SOB/Dyspnea General Chief Complaint: Shortness of Breath/Dyspnea Stated Complaint: inability to take a full breath, afib RVR Time Seen by Provider: 05/13/25 07:21 History of Present Illness HPI Narrative: Patient with cardiac history presents here to with shortness of breath, ongoing for the last 1-2 days though has been getting worse. Feel like his heart is racing. Related Data Allergies Allergy/AdvReac Type Severity Reaction Status Date / Time barley Allergy Unknown CELIAC Verified 07/22/20 12:30 DIS. FLAREUP No Known Drug Allergies Allergy Unknown Verified 07/22/20 12:30 wheat Allergy Unknown CELIAC Verified 07/22/20 12:30 DIS.FLAREUP Jacob Allergy Unknown CELIAC Uncoded 07/22/20 12:30 DIS. FLAREUP Review of Systems Review of Systems: All systems reviewed & are unremarkable except as noted in HPI and below PMFSH Social History Social History (System 07/22/20 @ 12:30 by Ananth Hough) Smoking packs per day: 1 Smoking cigarettes per day: 20.0 Years smoked: 31 Smoking pack-years: 31.00 Smoking status: Former smoker Tobacco type: cigarettes Second hand tobacco smoke exposure: No Smoking end date: 06/10/87 Exam Narrative: EXAMINATION OF ORGAN SYSTEMS/BODY AREAS: Constitutional: Vital signs per nursing GENERAL: Appears short of breath HEAD: Normal with no signs of head trauma. EYES: EOMI, conjunctiva normal ENT: Hearing grossly intact LUNGS: Appears short of breath HEART: Irregular and tachycardic ABD: Nondistended EXT: Normal range of motion SKIN: [No rashes or lesions.] NEURO: [Alert. No gross focal sensory or strength deficits.] PSYCH: Normal affect Course Vital Signs Vital signs: Vital Signs Temperature 97.6 F 05/13/25 07:09 Pulse Rate 188 H 05/13/25 07:09 Respiratory Rate 18 05/13/25 07:09 Blood Pressure 99/76 L 05/13/25 07:09 Pulse Oximetry 98 05/13/25 07:09 Oxygen Delivery Room Air 05/13/25 07:09 Temperature 97.6 F 05/13/25 07:09 Pulse Rate 62 05/13/25 10:55 Respiratory Rate 15 05/13/25 10:55 Blood Pressure 114/73 05/13/25 10:55 Pulse Oximetry 100 12/04/25 10:55 Oxygen Delivery Room Air 05/13/25 07:28 Procedures Other Procedure Procedure 1: Other Procedure: Cardioversion: Crash cart side, patient hooked up to monitors, and pads, IV access obtained, Ambu bag available. Verbal consent obtained from patient. 10 mg IV etomidate given for anxiolysis. Telemetry showing either AFib with RVR with aberrancy, versus V-tach. Cardioverted at 150J; patient tolerated this very well, was back in sinus rhythm with PVCs then sinus rhythm. MDM MDM Narrative Medical decision making narrative: Patient presenting with shortness of breath and palpitations. Was found to have heart rate in the 180s, initial blood pressure was low, has had bedside and did feel is necessary to cardiovert given the instability. Cardioversion: Crash cart at bedside, patient hooked up to monitors, and pads, IV access obtained, amiodarone started, Ambu bag available. Verbal consent obtained from patient. 10 mg IV etomidate given for anxiolysis. Telemetry showing either AFib with RVR with aberrancy, versus V-tach. Cardioverted at 150J; patient tolerated this very well, was back in sinus rhythm with PVCs then sinus rhythm. EKG - 12-Lead: Performed at 0722. Interpreted by me. [Sinus rhythm]. Rate 76. Left axis. HI-interval [normal]. QRS duration [normal]. QTc [normal]. [No ST segment elevation or depression]. [T-wave normal]. Impression: No EKG evidence of acute ischemia or dysrhythmia. // On re-evaluation, patient resting very comfortably in no distress. States he feels great and thinks he can go home. Labs do show elevated troponin likely from stress/demand ischemia, possibly from the cardioversion, but he has no chest pain whatsoever and no signs of ischemia on his EKG. BNP is also elevated. Given dose of Lasix, chest x-ray showing some CHF, discussed with remedy developer who does recommend admission, discussed with hospitalist. Patient and family agrees to be admitted. Differential Diagnosis Differential Diagnosis: afib rvr aberrancy vs vtach, infxn, etc Lab Data 05/13/25 07:30 05/13/25 07:30 Labs: Lab Results 05/13/25 Range/Units 07:30 WBC 8.3 (4.5-10.0) K/mm3 RBC 4.48 L (4.6-6.20) M/mm3 Hgb 14.2 (14.0-18.0) g/dL Hct 42.9 (42.0-52.0) % MCV 95.8 (80-100) fl MCH 31.7 (26-34) pg MCHC 33.1 (32-36) g/dl RDW 15.0 H (11.5-14.5) % Plt Count 204 (150-375) k/mm3 MPV 10.0 (7.4-10.4) fl Immature Gran % (Auto) 0.7 H (0-0.5) % Neut % (Auto) 68.1 (45.5-73.1) % Lymph % (Auto) 21.1 (18.3-44.2) % [place] % (Auto) 8.1 (2.6-8.5) % Eos % (Auto) 1.8 (0-4.4) % Baso % (Auto) 0.2 (0.2-1.2) % Lymph # (Auto) 1.75 (0.9-3.2) K/mm3 [place] # (Auto) 0.7 H (0.1-0.6) K/mm3 Eos # (Auto) 0.2 (0-0.3) K/mm3 Baso # (Auto) 0.0 (0.0-0.1) K/mm3 Abs Immat Gran (auto) 0.06 H (0.00-0.031) K/mm3 Absolute Neuts (auto) 5.6 (1.3-6.7) K/mm3 Absolute Nucleated RBC 0.000 (0.0-0.012) K/mm3 Nucleated RBC % 0.0 (0.0-0.2) % PT 16.1 H (11.1-14.7) Seconds INR 1.3 APTT 31.4 (22.3-36.8) Seconds Sodium 137 (137-145) mmol/L Potassium 3.8 (3.4-5.0) mmol/L Chloride 110 H (98-107) mmol/L Carbon Dioxide 20 L (22-30) mmol/L Anion Gap 7 (4-12) mmol/L BUN 42 H (9-20) mg/dL Creatinine 1.53 H (0.7-1.3) mg/dL Estim Creat Clear Calc 32 ml/min Estimated GFR 43 L (59 - ) Glucose 145 H (65-110) mg/dL Calcium 8.9 (8.4-10.2) mg/dL Total Bilirubin 0.6 (0.2-1.3) mg/dL AST 29 (17-59) U/L ALT 28 (6-50) U/L Alkaline Phosphatase 77 (38-126) U/L Troponin I 0.147 H* (0.000-0.034) ng/mL NT-Pro-B Natriuret Pep 9200 H (19.9-100) pg/mL Total Protein 7.0 (6.3-8.2) g/dL Albumin 4.0 (3.5-5.1) g/dL Imaging Data Radiologist's impression: ITS Impressions Chest X-Ray 05/13/25 08:08 Impression: Mild CHF Critical Care Time Critical Care Time Critical Care Time: Yes Indication: Tachyarrhythmia Initial evaluation, discuss w/ involved parties, attempting to gather old records: 10 minutes Documenting medical record: 5 minutes Review of results (EKG's, labs, imaging): 5 minutes Serial repeat bedside evaluation: 10 minutes Discussing case with multiple memebers of the care team and consultants: 5 minutes Total Critical Care Time: 35 Discharge Plan Discharge Clinical Impression: Tachyarrhythmia Patient Disposition: Still a Patient Condition: Improved
--- OUTSIDE RECORDS SUMMARY | 2025-05-13 11:07 | XMS_ITS | Encounter Summary ---
Author Organization [facility] Address [address] [place] [address] Phone Care Team Providers Care Yarn Examiner Skeins Name Role Phone Georges Barfield MD Primary Care Provider [phone] Lilia Welsh MD Unavailable [phone] Celena Kitchen MD Unavailable Kg Marie MD Unavailable [phone] Reason for Visit * Reason Onset Date Comments Shortness of Breath 05/12/2025 Encounter Details Date Type Department Care Team (Late st Contact Info) Description 05/12/2025 Telephone [facility] Medicine Cardiology [address] [facility] Advanced Medicine 8th [place] [address] [place] [address] Kg Marie MD [address] [place] [address] Shortness of Breath Social History [...] on file Legal Sex Male 2:09 AM TISSUE PACKER Gender Identity Male 06/29/2019 9:50 PM TISSUE PACKER Sexual Orientation Straight 06/29/2019 9: 50 PM TISSUE PACKER Occupation Industry Job Start Date Job 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 Told to call back if not being seen and/or new or increasingsymptoms UE PACKER * Telephone Encounter - Thuy Miner RN - 05/12/2025 11:51 AM TISSUE PACKER S/w Dr. Marie about patient in clinic- fu pcp to investigate new onset SOB yestreday UE PACKER * Telephone Encounter - Thuy Miner RN - 05/12/2025 10:46 AM TISSUE PACKER S/w patient 05/11 around 1300 really SOB- [...] No diet, med changes, or recent testing/procedures. UE PACKER * Telephone Encounter - Yokasta Espinoza - 05/12/2025 10:10 AM CST Cynthia Pt states he started to feel SOB yesterday and it got worse throughout the afternoon, then this morning was better but still feels a little short. Please call. UE PACKER documented in this encounter Plan of Treatment Not on file documented as of this encounter Goals Goal Patient Goal Type Associated Problems Recent Progress Patient-Stated? Author CCM Chronic Pain Care Plan Chronic Care Management No Shraifa Arthur RN Note: Problem: Chronic Pain Goals: 1. Minimize further functional decline 2. Maximize quality of life 3. Control pain Strategies: - Activity/exercise program recommendation - Conservative stepwise pain medicine strategy with multi-disciplinary approach - Recommend healthy lifestyle strategies and compensatory methods as needed documented as of this encounter Visit Diagnoses Not on filedocumented in this encounter Care Teams Yarn Examiner Skeins Relationship Specialty Start Date End Date Georges Barfield MD PCP - General 01/03/17 Lilia Welsh MD Referring Physician Cardiology 08/30/21 Celena Kitchen MD Surgeon Cardiothoracic Surgery 06/25/23 Kg Marie MD Consulting Physician Cardiology 06/25/23 documented as of this encounter
--- OUTSIDE RECORDS SUMMARY | 2025-05-13 11:07 | XMS_ITS | Encounter Summary ---
Author Organization [facility] Healthcare Address [address] [place] [address] Care Team Providers Care Loss Prevention And Safety Manager Name Role Phone Georges Barfield MD Primary Care Provider [phone] Lilia Welsh MD Unavailable [phone] Celena Kitchen MD Unavailable Kg Marie MD Unavailable [phone] Reason for Visit * Reason Onset Date Comments Med Refill 12/31/2023 Encounter Details Date Type Department Care Team (Late st Contact Info) Description 12/31/2023 Telephone [facility] [place] [facility] [address] 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
--- OUTSIDE RECORDS SUMMARY | 2025-05-13 11:07 | XMS_ITS | Encounter Summary ---
Author Organization [facility] Address [address] [place] [address] Care Team Providers Care Arts And Crafts Teacher Name Role Phone Georges Barfield MD Primary Care Provider [phone] Lilia Welsh MD Unavailable [phone] Celena Kitchen MD Unavailable Kg Marie MD Unavailable [phone] Encounter Details Date Type Department Care Team (Late st Contact Info) Description 11/19/2024 Documentation [facility] [address] [address] Georges Barfield MD [address] [place] [address] Social History Tobacco Use Types Packs/Day [...] on file Legal Sex Male 2:09 AM COMMERCIAL REAL ESTATE LENDER Gender Identity Male 06/29/2019 9:50 PM COMMERCIAL REAL ESTATE LENDER Sexual Orientation Straight 06/29/2019 9: 50 PM COMMERCIAL REAL ESTATE LENDER Occupation Industry Job Start Date Job End Date 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
--- OUTSIDE RECORDS SUMMARY | 2025-05-13 11:07 | XMS_ITS | Clinical Summary ---
Author Organization [facility] Address [address] [facility] [place] [address] Care Team Providers Care Pharmaceutical Scientist Name Role Phone Georges Barfield MD Primary Care Provider Michelet Campos MD Unavailable [phone] Evangelista Cartagena DO Unavailable [phone] Source Comments [facility],non-owned Affiliates and Associated Physician Practices is amultiple site organization consisting of ambulatory clinics and hospital sitesin [place], [place], [place] and [place]. This disclosure is being madepursuant to the Care Everywhere program and may not contain all information available regarding this patient. Last updated 18.[facility] Allergies Active Allergy Reactions Criticality Noted Date [...] Active Melatonin 5 MG 11/09/19 21 Active Hinckley-3 1000 MG 2 times daily Active traMADol [...] lower leg 09/01/2013 Overview (09/03/2015): 2015 [facility] 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 Overview (09/03/2015): 2015 [facility] Social History Tobacco Use Types Packs/Day Years [...] on file Legal Sex Male 10:25 AM STORE PROTECTION SPECIALIST Gender Identity Not on file Sexual Orientation Not on file Last Filed Vital Signs Vital Sign Reading Time Taken Comments Blood Pressure 155/74 05/28/2015 7:38 AM STORE PROTECTION SPECIALIST Pulse 86 05/28/2015 7:38 AM STORE PROTECTION SPECIALIST Temperature 36.8 C (98.3 F) 05/28/2015 7:38 AM STORE PROTECTION SPECIALIST Respiratory Rate 20 05/28/2015 7:38 AM STORE PROTECTION SPECIALIST Oxygen Saturation 91% 05/28/2015 7:38 AM STORE PROTECTION SPECIALIST Inhaled Oxygen Concentration - - Weight 89.8 kg (198 lb) 06/30/2024 11:17 AM STORE PROTECTION SPECIALIST Height 180.3 cm (5' 11) 06/30/2024 11:17 AM STORE PROTECTION SPECIALIST Body Mass Index 27.62 06/30/2024 11:17 AM STORE PROTECTION SPECIALIST Plan of Treatment Health Maintenance Due Date [...] this topic Medical Devices Implanted Type Area Mixer Crane Operator Device Identifier Shelf Expiration Date Model / Serial / Lot Valentin Bone [place] Hv Implanted:Qty: 1 on 05/26/2015 by Michelet Campos MD at [facility] Right: Knee [employer] 01/07/2017 [id number] / / [id number] Implt Fem Cr R 72.5mm Implanted:Qty: 1 on 05/26/2015 by Michelet Campos MD at [facility] Right: Knee [employer] 03/30/2025 [id number] / / [id number] Tibial I Beam Fix Bar 83mm Implanted:Qty: 1 on 05/26/2015 by Michelet Campos MD at [facility] Right: Knee [employer] 02/07/2025 [id number] / / [id number] Butn Pat Arcom Wire Polyeth Sm 31 X 8mm Implanted:Qty: 1 on 05/26/2015 by Michelet Campos MD at [facility] Right: Knee [employer] 02/10/2020 [id number] / / [id number] Bridg Tib Ant Stblzd 12mm X 83mm Implanted:Qty: 1 on 05/26/2015 by Michelet Campos MD at [facility] Right: Knee [employer] 06/20/2019 [id number] / / [id number] [place] [address] MEDICARE Advance Directives Documents on File Type Date Recorded Patient Sports Development Officer Expl anation Adv Directive/Living Will/POA 05/30/2015 2:46 PM * Full Code (Latest Code Status on File) Date Activated Date Inactivated Comments 05/26/2015 11:57 AM 05/28/2015 12:51 PM Care Teams Pharmaceutical Scientist Relationship Specialty Start Date End Date Georges Barfield MD [address] [facility], [address] PCP - General Internal Medicine 09/01/13 [place] [address] [place] [address] 61409 Orthopedic Surgery 09/01/13 [place] [address] [place] [address] 64384 Orthopedic Surgery 12/01/14
--- OUTSIDE RECORDS SUMMARY | 2025-05-13 11:07 | XMS_ITS | Encounter Summary ---
Author Organization [facility] Address [address] [place] [address] Care Team Providers Care Technical Support Coordinator Name Role Phone Georges Barfield MD Primary Care Provider Michelet Campos MD Unavailable [phone] Evangelista Cartagena DO Unavailable [phone] Encounter Details Date Type Department Care Team (Late st Contact Info) Description 06/09/2016 Therapy Visit [facility] Orthopedics [address] [facility] [address] [place] [address] [place] [address] [address] Social History Tobacco Use Types Packs/Day Years Used Date Smoking Tobacco: Former Cigarettes 0 Q uit: 06/10/1979 Alcohol Use Standard Drinks/Week Comments Yes 0 (1 standard drink = 0.6 oz pur e alcohol) social drinking Sex and Gender Information Value Date Recorded Sex Assigned at Not on file Legal Sex Male 10: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
--- OUTSIDE RECORDS SUMMARY | 2025-05-13 11:07 | XMS_ITS | Encounter Summary ---
Author Organization [facility] Address [address] [place] [address] Phone Care Team Providers Care Sales And Marketing Assistant Name Role Phone Georges Barfield MD Primary Care Provider [phone] Lilia Welsh MD Unavailable [phone] Celena Kitchen MD Unavailable Kg Marie MD Unavailable [phone] Encounter Details Date Type Department Care Team [...] on file Legal Sex Male 2:09 AM CARDER BLANKETS Gender Identity Male 06/29/2019 9:50 PM CARDER BLANKETS Sexual Orientation Straight 06/29/2019 9: 50 PM CARDER BLANKETS Occupation Industry Job Start Date Job End Date 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 No precautions needed Cher Sorto 06/06/2020 06/05/2020 06/05/2020 06/06/2020 9:[address] C. difficile suspected 02/18/2025 02/19/202502/19 12:28 PM CDT documented as of this encounter Care Teams Sales And Marketing Assistant Relationship Specialty Start Date End Date Georges Barfield MD PCP - General 01/03/17 Lilia Welsh MD Referring Physician Cardiology 08/30/21 Celena Kitchen MD Surgeon Cardiothoracic Surgery 06/25/23 Kg Marie MD Consulting Physician Cardiology 06/25/23 documented as of this encounter
--- OUTSIDE RECORDS SUMMARY | 2025-05-13 11:07 | XMS_ITS | Clinical Summary ---
Author Organization [facility] Address [address] [place] [address] Care Team Providers Care Web Content Editor Name Role Phone Georges Barfield MD Primary Care Provider [phone] Lilia Welsh MD Unavailable [phone] Celena Kitchen MD Unavailable Kg Marie MD Unavailable Allergies Active Allergy Reactions Criticality Noted Date Comments Gluten Diarrhea Low Medications cyanocobalamin (Vitamin B-12) 1,000 mcg tablet Take 1 tablet (1,000 mcg total) by mouth daily Active polycarbophil (FIBERCON) 625 mg tablet Take 1 tablet (625 mg total) by mouth nightly Active cholecalciferol (VITAMIN D-3) 25 mcg (1,000 unit) tablet Take 1 tablet (1,000 Units total) by mouth daily Active omega 6-rjw-orz-fish oil 1,000 mg (120 mg-180 mg) capsule [...] 06/24/2023 Assessment & Plan (06/24/2023 11:50 AM TOOL DISPATCHER): S/p mitraclip X 1 on 06/24 CXR, TTE and labs tomorrow AM Remove figure of eight suture from RFV groin site on 06/25 Mitral valve regurgitation 06/21/2021 Assessment & Plan (06/24/2023 8:28 AM TOOL DISPATCHER): S/p Mitraclip 06/24 CXR, TTE and labs [...] heat/ice application. - Can use Biofreeze or Offerman [place], sold over the counter, follow directions on the medication. PSA elevation 07/02/2018 Sinus bradycardia 05/09/2018 Asymmetrical sensorineural hearing loss 11/16/19 18 Multiple pulmonary nodules 07/27/2016 Obstructive sleep apnea syndrome 08/03/2015 SVT (supraventricular tachycardia) 07/04/2015 Assessment & Plan (06/24/2023 8:30 AM TOOL DISPATCHER): History of PSVT-F/W Dr Welsh On metoprolol Monitor on telemetry Primary osteoarthritis of right knee 06/20/2015 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 Overview (12/30/2017): Overview: 2015 IMO Updt Interstitial cystitis 07/24/2013 Gastroesophageal reflux disease without esophagi tis 05/25/2013 Assessment & Plan (06/24/2023 8:29 AM TOOL DISPATCHER): Continue PPI Hyperlipidemia 05/25/2013 Assessment & Plan (06/24/2023 8:29 AM TOOL DISPATCHER): Continue statin Primary hypertension 05/25/2013 Assessment & Plan (06/24/2023 8:29 AM TOOL DISPATCHER): Goal SBP <160 and MAP >65 Restart lisinopril and toprol as BP allows Osteopenia 05/25/2013 Exomphalos 12/01/2012 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 Celiac disease 03/14/2012 Bronchiectasis without complication Resolved Problems Problem Noted Date Diagnosed Date Resolved Date New onset a-fib 11/12/2024 02/01/2025 Atrial fibrillation with RVR 07/03/2024 08/03/2024 Encounters Date Type Department Care Team Description 05/12/2025 Telephone [facility] Cardiology [address] [place] [address] [place] [address] Kg Marie MD Shortness of Breath 02/26/2025 9:00 AM CDT Procedure visit [facility] Otolaryngology [address] [place] [address] [place] [phone] Zuleyka Jean Baptiste Au.D. Asymmetrical sensorineural hearing loss (Primary Dx) 02/22/2025 Orders Only [facility] Gastroenterology [address] [place] [address] [address]th [place] [address] [place] [id number] Marleny Vasquez LPN Acute diarrhea (Primary Dx); Microscopic colitis, unspecified microscopic colitis type 02/19/2025 8:15 AM CDT Lab [address] [address] Acute diarrhea 02/18/2025 Telephone [facility] Gastroenterology [facility] [place] [address] [place] [phone] Marleny Vasquez LPN from Last 3 Months [...] 06/24/2019,01/30/2019 Surgical History Surgery Date Site/Laterality Comments [place] TONSILLECTOMY PRIMARY/SECONDARY <AGE 13 TOTAL KNEE ARTHROPLASTY [...] on file Legal Sex Male 2:09 AM TOOL DISPATCHER Gender Identity Male 06/29/2019 9:50 PM TOOL DISPATCHER Sexual Orientation Straight 06/29/2019 9: 50 PM TOOL DISPATCHER Occupation Industry Job Start Date Job End Date 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 Not on file Not on file [...] as needed Medical Devices Implanted Type Area Wheat Inspector Device Identifier Shelf Expiration Date Model / Serial / Lot Persaud Vascular Mitraclip G4 Xtw Cardiac Valve Clip [id number] - [id number] - [id number] Implanted:Qty : 1 on 06/24/2023 by Kg Marie MD at [facility] Clip N/A: Mitral Valve [employer] 10/31/2023 [id number] / [id number] / [id number] Other - See Comments Other - see comments Right: Knee [employer] Vascular Device Clsr Perclose Prostyle Sut-Mediatd Closure-Repai r Sys [id number] - [id number] - [id number] Implanted:Qty : 1 on 06/24/2023 by Kg Marie MD at [facility] Vascular Closure Device Left: Femoral Vein [employer] 01/07/2025 [id number] / [id number] / [id number] [employer]aud Vascular Mitraclip Implant G4 System [id number] - [id number] Implanted:Qty : 1 on 06/24/2023 by Kg Marie MD at [facility] N/A: Mitral Valve [employer] [id number] / / [id number] Procedure Name Priority Date/Time [...] CDT Keenan Ley MD LAB MICROBIOLOGY - [facility] BELTRAN CHENEY Final Result Performing Organization Address [facility] Co de Phone Number NUSRAT [address] [facility] [place] [address] * Stool culture Stool Rectum (02/19/2025 8:45 AM CDT) Direct Specimen Exam Shiga Toxin Testing: Antigen detection assay for Shiga-toxin NEGATIVE for Shiga Toxin 1 and Shiga Toxin 2. Comment:Testing performed by : , [address] [place] [address]., [id number] Report Final Report: No growth of enteric bacterial pathogens NUSRAT Comment:Testing performed by : , [address] [place]., [address] Stool (Rectum) 02/19/2025 8: 45 AM CDT 02/20/2025 11:01 AM CDT Narrative NUSRAT - 02/24/2025 12:30 PM CDT Testing performed by Microbiology Laboratory ([phone]). Routine stool cultures include procedures to detect Salmonella, Shigella, Edwardsiella, Aeromonas, Pleisiomonas, Campylobacter, Yersinia, E. coli O157, and Shiga-like toxins. Vibrio is cultured only upon special request. If Vibrio is suspected, please call the laboratory at [phone]. Interpretive data was last updated October 15, 2016. Keenan Ley MD LAB MICROBIOLOGY - [facility]TRAN [facility] Final Result Performing Organization Address City/[facility]/ZIP Co de Phone Number NUSRAT [address] [place] [address] [place] [address] from Last 3 Months Insurance MEDICARE FOR LIFE MEDICARE FOR LIFE MEDICARE [facility] Address: [facility] [address] [place] [address] FOR LIFE FOR LIFE MEDICARE MEDICARE FOR [facility] MEDICARE FOR LIFE Advance Directives For more information, please contact: [phone] * Full Code (Latest Code Status on File) Date Activated Date Inactivated Comments 11/12/2024 5:33 PM 11/13/2024 5:30 PM * Full Code Date Activated Date Inactivated Comments 06/25/2023 8:18 AM 06/25/2023 7:17 PM Care Teams Web Content Editor Relationship Specialty Start Date End Date Georges Barfield MD PCP - General 01/03/17 Lilia Welsh MD Referring Physician Cardiology 08/30/21 Celena Kitchen MD Surgeon Cardiothoracic Surgery 06/25/23 Kg Marie MD Consulting Physician Cardiology 06/25/23
[2025-05-13 11:37] LABS: Troponin I 0.134 ng/mL (0.000-0.034)
--- NOTE | 2025-05-13 12:44 | WPCEDHO ---
ED Hand Off Checklist All vitals saved: YES IV Site documented: YES All med administrations documented: YES Triage Note Triage Note pt to ed via [facility] 05/13/25 07:09 from home with c/o shortness of breath and was found to be in a- fib RVR. patient denies chest pain. pt states that he started feeling bad around 1300 saturday Allergies barley Allergy (Unknown, Verified 05/13/25 12:35) CELIAC DIS. FLAREUP No Known Drug Allergies Allergy (Unknown, Verified 05/13/25 12:35) Unknown wheat Allergy (Unknown, Verified 05/13/25 12:35) CELIAC DIS.FLAREUP [place] Allergy (Unknown, Uncoded 07/22/20 12:30) CELIAC DIS. FLAREUP Family History (Last Updated 05/13/25 @ 12:38 by Josephine Hines RN) Mother Acute myocardial infarction Father Motor vehicle accident (victim) Daughter Diabetes mellitus Son Diabetes mellitus Active Medications including assessments/comments Amiodarone HCl/Dextrose (Nexterone 360 Mg/D5w 200 Ml) 360 mg in 200 mls @ 33.333 mls/hr IV CONT .Q6H ONE Stop: 05/13/25 13:04 Last Admin: 05/13/25 12:40 Dose: Not Given Documented By: SANTOS Non-Admin Reason: Duplicate Dose Administered/Completed Medications Discontinued Medications Etomidate (Etomidate 20 Mg/10 Ml Ampul) Confirm Administered Dose 20 mg .ROUTE .STK-MED ONE Stop: 05/13/25 07:16 Last Admin: 05/13/25 07:24 Dose: 10 mg Documented By: SANTOS Etomidate (Etomidate 20 Mg/10 Ml Ampul) 10 mg IV PUSH ONCE ONE Stop: 05/13/25 12:43 Last Admin: 05/13/25 12:43 Dose: Not Given Documented By: SANTOS Non-Admin Reason: Duplicate Dose Furosemide (Furosemide Inj 40 Mg/4 Ml Vial) 40 mg IV PUSH ONCE STA Stop: 05/13/25 08:50 Last Admin: 05/13/25 09:02 Dose: 40 mg Documented By: SANTOS Amiodarone HCl/Dextrose (Nexterone 360 Mg/D5w 200 Ml) Confirm Administered Dose 360 mg in 200 mls @ as directed .ROUTE .STK-MED ONE Stop: 05/13/25 07:15 Last Admin: 12/04/25 07:37 Dose: 33.3 mls/hr Documented By: SANTOS Amiodarone HCl/Dextrose (Nexterone 150 Mg/D5w 100 Ml) Confirm Administered Dose 150 mg in 100 mls @ as directed .ROUTE .STK-MED ONE Stop: 05/13/25 07:15 Last Infusion: 05/13/25 07:38 Dose: Infused Documented By: Admin: 05/13/25 07:23 Dose: 400 mls/hr Documented By: SANTOS Amiodarone HCl/Dextrose (Nexterone 150 Mg/D5w 100 Ml) 150 mg in 100 mls @ 600 mls/hr IV CONT .Q10M ONE Stop: 05/13/25 07:14 Last Admin: 05/13/25 12:40 Dose: Not Given Documented By: SANTOS Non-Admin Reason: Duplicate Dose Notes 05/13/25 07:39 Nurse Note by Katherine Doyle upon arrival to the ED patient was placed on quality assurance monitor body where he was noted to have a heart rate in the 220s with runs of vtach. Patient was attached to lifepack with pads. EDP at bedside verbally ordered 10mg etomodate. patient was shocked with 150J at 0719. patient is currently awake and alert and oriented x 4 with a heart rate of 87, bp 109/71, respiratory rate of 14, spo2 97%. family at bedside at this time and given an update to care and patient condition Initialized on 05/13/25 07:39 - END OF NOTE Interventions/Assessments IV / Saline Lock, Insert Start: 05/13/25 07:05 Freq: Status: Active Protocol: Document 05/13/25 07:28 AJW (Rec: 05/13/25 07:28 AJ [id number]) IV Assessment Peripheral Access Right Antecubital IV Catheter Access Initiated Before Arrival IV Insertion Date 05/13/25 Catheter Gauge 20 IV Site Assessment WNL IV Care and WNL Maintenance PA: Cardiovascular Assessment Start: 05/13/25 07:05 Freq: Status: Active Protocol: Document 05/13/25 07:28 AJW (Rec: 05/13/25 07:28 [facility] [id number]) Cardiovascular Assessment Cardiovascular Dyspnea Symptoms Skin Description Normal Color Heart Sounds Normal PA: Respiratory Assessment Start: 05/13/25 07:05 Freq: Status: Active Protocol: Document 05/13/25 07:28 AJW (Rec: 05/13/25 07:28 AJW [id number]) Respiratory Assessment Symptoms Shortness of Breath at Rest,Shortness of Breath With Exertion Effort Normal Pattern Regular Depth Normal Chest Expansion Symmetrical Cough Description None Oxygen Delivery Oxygen Delivery Room Air Pulse Oximetry (90- 94 100) Last Vital Signs Temperature 97.8 F 05/13/25 12:17 Pulse Rate 67 05/13/25 12:31 Respiratory Rate 24 H 05/13/25 12:31 Pulse Oximetry 81 L 05/13/25 12:31 Blood Pressure 109/60 05/13/25 12:31 Blood Pressure Mean 74 05/13/25 12:31 Oxygen Delivery Room Air 05/13/25 07:28 Weight 86.4 kg 05/13/25 12:39 Last Result - Abnormals Only RBC 4.48 M/mm3 (4.6-6.20) L 05/13/25 07:30 RDW 15.0 % (11.5-14.5) H 05/13/25 07:30 Immature Gran % (Auto) 0.7 % (0-0.5) H 05/13/25 07:30 Swift # (Auto) 0.7 K/mm3 (0.1-0.6) H 05/13/25 07:30 Abs Immat Gran (auto) 0.06 K/mm3 (0.00-0.031) H 05/13/25 07:30 PT 16.1 Seconds (11.1-14.7) H 05/13/25 07:30 Chloride 110 mmol/L (98-107) H 05/13/25 07:30 Carbon Dioxide 20 mmol/L (22-30) L 05/13/25 07:30 BUN 42 mg/dL (9-20) H 05/13/25 07:30 Creatinine 1.53 mg/dL (0.7-1.3) H 05/13/25 07:30 Estimated GFR 43 (59-) L 05/13/25 07:30 Glucose 145 mg/dL (65-110) H 05/13/25 07:30 Troponin I 0.134 ng/mL (0.000-0.034) H* 05/13/25 11:04 NT-Pro-B Natriuret Pep 9200 pg/mL (19.9-100) H 05/13/25 07:30 Most Recent Suicide Severity Rating Suicide Severity Rating NO RISK INDICATED 05/13/25 12:26
--- NOTE | 2025-05-13 13:01 | ADMGEN ---
This patient, Evangelista Chambers, was admitted to IMU Room 209-01. Patient/family oriented to hospital policies and general routines including ID bracelet, bed and alarms, visiting hours, pain management, procedures, bathroom and other care routines, personal items, smoking policy, room service/diet, and visiting hours. Information on how to activate the Rapid Response Team has been discussed. Patient/Family are encouraged to report perceived risks to care and to ask questions if they do not understand what they are told or what they should do. Patient is currently boarding in the ER.
--- NOTE | 2025-05-13 14:30 | PM.CNCAR ---
Assessment and Plan Assessment and plan (1) Paroxysmal atrial fibrillation: Code(s): I48.0 - Paroxysmal atrial fibrillation Status: Acute (2) Severe mitral regurgitation: Code(s): I34.0 - Nonrheumatic mitral (valve) insufficiency Status: Acute (3) Chronic diastolic heart failure: Code(s): I50.32 - Chronic diastolic (congestive) heart failure Status: Acute Plan 89-year-old man with severe mitral regurgitation status post OBDULIA with 1 mitraclip, chronic diastolic heart failure, and paroxysmal atrial fibrillation on Eliquis presents with shortness of breath Paroxysmal atrial fibrillation -resume Eliquis 5 mg p.o. b.i.d. and Toprol 25 mg p.o. daily -can follow-up with EP at [facility] (Dr. Domingo) Acute on chronic diastolic heart failure -resume home Lasix Severe mitral regurgitation status post MitraClip x 1 -outpatient follow-up with [facility] (Dr. Marie) Overall, he appears euvolemic and normal rhythm. He can be discharged from a cardiac perspective to follow up with his cardiovascular team at [facility] [place]. Cardiology will sign off. Please call with additional questions History of Present Illness History of Present Illness Consult date/time: 05/13/25 14:30 Requesting physician: Sheridan Cevallos MD Consult reason: atrial fibrillation Reason For Visit: tachyarrhythymia Narrative: 89-year-old man with severe mitral regurgitation status post OBDULIA with 1 mitraclip, chronic diastolic heart failure, and paroxysmal atrial fibrillation on Eliquis presents with shortness of breath. Symptoms started on Saturday and progressively worsened. He was unable to sleep the last 2 evening secondary to severe orthopnea. Denies any chest discomfort. States that he typically does not feel any palpitations or symptoms from his atrial fibrillation. Denies lower extremity swelling. No syncopal events. Typically very active and exercises 3 to 4 times a week doing 45 minutes of exercise is at moderate intensity without any cardiopulmonary limitations. Upon presentation, he was found to be in atrial fibrillation with rapid ventricular rates as well as volume overload from acute on chronic diastolic heart failure. He was cardioverted and given IV Lasix after which his symptoms had resolved. Review of Systems Cardiovascular: Cardiovascular: Reports as per HPI Respiratory: Respiratory: Reports as per HPI [facility] Family History Family History (Updated 05/13/25 @ 12:38 by Josephine Hines RN) Mother Acute myocardial infarction Father Motor vehicle accident (victim) Daughter Diabetes mellitus Son Diabetes mellitus Social History Social History (System 07/22/20 @ 12:30 by Ananth Hough) Smoking packs per day: 1 Smoking cigarettes per day: 20.0 Years smoked: 31 Smoking pack-years: 31.00 Smoking status: Former smoker Tobacco type: cigarettes Second hand tobacco smoke exposure: No Smoking end date: 06/10/87 Alcohol intake: current Drinks per week: 3 Substance use: never Substance use type: does not use Lack of Transportation: No Lack of Food: Never True Current Housing: I Have Housing Concerned About Future Housing: No Difficulty Paying Gas/Electric Bills: No Difficulty Paying for Meds: No Currently Unemployed: No Education: Associate Degree Difficulty w/ Childcare or Family Care: No Spiritual care concerns: No Meds Home Medications and Allergies Home Medications ?Medication ?Instructions ?Recorded ?Confirmed ?Type apixaban 5 mg tablet (Eliquis) 5 mg PO Q12H 05/13/25 05/13/25 History calcium carb-ergocalciferol (vit 1 tablet PO BID 05/13/25 05/13/25 History D2) 600 mg calcium-200 unit tablet calcium polycarbophil 625 mg 1,250 mg PO HS 05/13/25 05/13/25 History tablet (Fiber (calcium polycarbophil)) cholecalciferol (vitamin D3) 25 1,000 unit PO DAILY 05/13/25 05/13/25 History mcg (1,000 unit) tablet (Vitamin D3) cholestyramine (with sugar) 4 gram 1 ea PO DAILY 05/13/25 05/13/25 History powder for susp in a packet cyanocobalamin (vitamin B-12) 1,000 mcg PO DAILY 05/13/25 05/13/25 History 1,000 mcg tablet (Vitamin B-12) finasteride 5 mg tablet 5 mg PO HS 05/13/25 05/13/25 History furosemide 20 mg tablet 20 mg PO DAILY 05/13/25 05/13/25 History gabapentin 100 mg capsule 100 mg PO Q8H 05/13/25 05/13/25 History lisinopril 40 mg tablet 40 mg PO DAILY 05/13/25 05/13/25 History meloxicam 15 mg tablet 15 mg PO DAILY 05/13/25 05/13/25 History metoprolol succinate 25 mg 25 mg PO DAILY 05/13/25 05/13/25 History tablet,extended release 24 hr omega-3 fatty acids 1,000 mg PO BID 05/13/25 05/13/25 History omeprazole 40 mg capsule,delayed 40 mg PO DAILY 05/13/25 05/13/25 History release simvastatin 20 mg tablet 20 mg PO QPM 05/13/25 05/13/25 History Allergies Allergy/AdvReac Type Severity Reaction Status Date / Time barley Allergy Unknown CELIAC Verified 05/13/25 12:35 DIS. FLAREUP No Known Drug Allergies Allergy Unknown Unknown Verified 05/13/25 12:35 wheat Allergy Unknown CELIAC Verified 05/13/25 12:35 DIS.FLAREUP [place] Allergy Unknown CELIAC Uncoded 07/22/20 12:30 DIS. FLAREUP Vital Signs Vital Signs - 24 hr 05/13/25 07:09 05/13/25 07:17 05/13/25 07:23 Temperature 36.4 C Pulse Rate 188 H 164 H 224 H Respiratory Rate 18 27 H Blood Pressure 99/76 L 99/76 L Pulse Oximetry 98 Oxygen Delivery Room Air 05/13/25 07:26 05/13/25 07:27 05/13/25 07:28 Temperature Pulse Rate 71 73 Respiratory Rate 24 H 19 Blood Pressure 104/78 105/68 Pulse Oximetry 100 99 94 Oxygen Delivery Room Air 05/13/25 07:30 05/13/25 07:31 05/13/25 07:32 Temperature Pulse Rate 68 74 72 Respiratory Rate 28 H 27 H 20 Blood Pressure 103/65 104/66 104/66 Pulse Oximetry 98 99 96 Oxygen Delivery 05/13/25 07:33 05/13/25 07:36 05/13/25 07:37 Temperature Pulse Rate 72 72 63 Respiratory Rate 23 H 22 H Blood Pressure 108/73 108/73 Pulse Oximetry 96 95 Oxygen Delivery 05/13/25 07:38 05/13/25 07:41 05/13/25 07:45 Temperature Pulse Rate 74 73 75 Respiratory Rate 14 23 H Blood Pressure 108/73 109/71 Pulse Oximetry 95 97 Oxygen Delivery 05/13/25 07:46 05/13/25 07:51 05/13/25 08:00 Temperature Pulse Rate 64 73 67 Respiratory Rate 18 15 27 H Blood Pressure 126/97 H 101/54 L Pulse Oximetry 98 94 98 Oxygen Delivery 05/13/25 08:11 05/13/25 08:15 05/13/25 08:26 Temperature Pulse Rate 74 61 71 Respiratory Rate 26 H 20 16 Blood Pressure 107/56 L 103/58 L Pulse Oximetry 90 96 93 Oxygen Delivery 05/13/25 08:30 05/13/25 08:31 05/13/25 08:36 Temperature Pulse Rate 69 63 64 Respiratory Rate 18 28 H 17 Blood Pressure 98/66 L 112/68 Pulse Oximetry 98 96 97 Oxygen Delivery 05/13/25 08:41 05/13/25 08:47 05/13/25 08:50 Temperature Pulse Rate 72 65 63 Respiratory Rate 22 H 19 20 Blood Pressure 102/68 109/63 Pulse Oximetry 99 97 96 Oxygen Delivery 05/13/25 08:56 05/13/25 08:57 05/13/25 09:00 Temperature Pulse Rate 64 64 77 Respiratory Rate 25 H 19 25 H Blood Pressure 117/59 L Pulse Oximetry 97 94 100 Oxygen Delivery 05/13/25 09:01 05/13/25 09:11 05/13/25 09:15 Temperature Pulse Rate 70 60 64 Respiratory Rate 22 H 24 H 24 H Blood Pressure 105/73 109/67 105/64 Pulse Oximetry 99 95 100 Oxygen Delivery 05/13/25 09:16 05/13/25 09:21 05/13/25 09:26 Temperature Pulse Rate 65 85 65 Respiratory Rate 24 H 20 20 Blood Pressure 99/68 L 112/62 Pulse Oximetry 97 97 Oxygen Delivery 05/13/25 09:30 05/13/25 09:31 05/13/25 09:37 Temperature Pulse Rate 61 65 63 Respiratory Rate 14 16 24 H Blood Pressure 111/63 109/63 Pulse Oximetry 97 97 99 Oxygen Delivery 05/13/25 09:40 05/13/25 09:46 05/13/25 09:47 Temperature Pulse Rate 65 66 67 Respiratory Rate 16 20 21 H Blood Pressure 105/63 141/79 H Pulse Oximetry 96 95 99 Oxygen Delivery 05/13/25 09:51 05/13/25 09:55 05/13/25 10:00 Temperature Pulse Rate 64 60 61 Respiratory Rate 20 16 17 Blood Pressure 113/65 109/58 L 109/59 L Pulse Oximetry 98 96 98 Oxygen Delivery 05/13/25 10:01 05/13/25 10:07 05/13/25 10:12 Temperature Pulse Rate 66 76 74 Respiratory Rate 17 20 23 H Blood Pressure 97/53 L 104/76 Pulse Oximetry 99 100 Oxygen Delivery 05/13/25 10:15 05/13/25 10:16 05/13/25 10:21 Temperature Pulse Rate 63 69 61 Respiratory Rate 17 23 H 25 H Blood Pressure 110/90 99/60 L Pulse Oximetry 98 97 97 Oxygen Delivery 05/13/25 10:25 05/13/25 10:31 05/13/25 10:36 Temperature Pulse Rate 63 67 68 Respiratory Rate 20 23 H 18 Blood Pressure 105/64 127/101 H Pulse Oximetry 98 97 99 Oxygen Delivery 05/13/25 10:41 05/13/25 10:45 05/13/25 10:46 Temperature Pulse Rate 63 60 66 Respiratory Rate 19 21 H 22 H Blood Pressure 118/70 111/60 Pulse Oximetry 97 96 96 Oxygen Delivery 05/13/25 10:55 05/13/25 10:56 05/13/25 11:00 Temperature Pulse Rate 62 67 62 Respiratory Rate 15 18 19 Blood Pressure 114/73 Pulse Oximetry 100 99 99 Oxygen Delivery 05/13/25 11:01 05/13/25 11:06 05/13/25 11:11 Temperature Pulse Rate 76 65 61 Respiratory Rate 17 24 H 22 H Blood Pressure 123/71 107/65 Pulse Oximetry 97 100 Oxygen Delivery 05/13/25 11:15 05/13/25 11:16 05/13/25 11:20 Temperature Pulse Rate 77 69 62 Respiratory Rate 24 H 22 H 23 H Blood Pressure 114/74 121/73 Pulse Oximetry 92 100 100 Oxygen Delivery 05/13/25 11:26 05/13/25 11:30 05/13/25 11:31 Temperature Pulse Rate 67 81 75 Respiratory Rate 24 H 33 H 22 H Blood Pressure 110/74 110/80 Pulse Oximetry 99 94 Oxygen Delivery 05/13/25 11:35 05/13/25 11:41 05/13/25 11:45 Temperature Pulse Rate 65 60 60 Respiratory Rate 23 H 16 25 H Blood Pressure 112/75 108/70 112/65 Pulse Oximetry 95 91 100 Oxygen Delivery 05/13/25 11:46 05/13/25 12:00 05/13/25 12:01 Temperature Pulse Rate 61 79 80 Respiratory Rate 19 23 H 25 H Blood Pressure 112/64 Pulse Oximetry 99 Oxygen Delivery 05/13/25 12:06 05/13/25 12:17 05/13/25 12:20 Temperature 36.6 C Pulse Rate 78 70 77 Respiratory Rate 22 H 20 18 Blood Pressure 119/74 109/60 110/55 L Pulse Oximetry 98 Oxygen Delivery 05/13/25 12:26 05/13/25 12:30 05/13/25 12:31 Temperature Pulse Rate 66 71 67 Respiratory Rate 24 H 18 Blood Pressure 107/50 L 109/60 Pulse Oximetry 96 Oxygen Delivery 05/13/25 12:32 05/13/25 12:36 05/13/25 12:40 Temperature Pulse Rate 66 66 66 Respiratory Rate 21 H 24 H 24 H Blood Pressure 97/66 L 106/60 Pulse Oximetry 100 99 Oxygen Delivery 05/13/25 12:45 05/13/25 12:46 05/13/25 12:51 Temperature Pulse Rate 66 66 66 Respiratory Rate 24 H 23 H 24 H Blood Pressure 108/61 103/68 Pulse Oximetry 91 100 Oxygen Delivery 05/13/25 12:55 05/13/25 12:58 05/13/25 13:00 Temperature Pulse Rate 64 65 67 Respiratory Rate 29 H 19 25 H Blood Pressure 112/65 112/65 Pulse Oximetry 97 98 97 Oxygen Delivery 05/13/25 13:01 05/13/25 13:06 05/13/25 13:10 Temperature Pulse Rate 61 62 64 Respiratory Rate 23 H 23 H 23 H Blood Pressure 102/51 L 109/54 L 114/64 Pulse Oximetry 100 100 100 Oxygen Delivery 05/13/25 13:15 05/13/25 13:16 05/13/25 13:33 Temperature Pulse Rate 64 66 74 Respiratory Rate 14 24 H Blood Pressure 112/63 Pulse Oximetry 100 99 Oxygen Delivery 05/13/25 13:36 05/13/25 13:39 Temperature 36.4 C Pulse Rate 67 70 Respiratory Rate 20 Blood Pressure 112/65 119/49 L Pulse Oximetry 99 Oxygen Delivery Exam Const: General: comfortable HENMT: Mouth: Yes moist mucous membranes Eyes: EOM: EOMs intact bilaterally Neck: Neck: no JVD Resp: Effort & Inspection: normal respiratory effort Auscultation: clear to auscultation bilaterally Cardio: Rate: regular rate Rhythm: regular rhythm Extrem: General: no pedal edema Results Labs and Meds 05/13/25 07:30 05/13/25 07:30 Lab results: Cardiac Enzymes 05/13/25 05/13/25 Range/Units 07:30 11:04 AST 29 (17-59) U/L Troponin I 0.147 H* 0.134 H* (0.000-0.034) ng/mL Coagulation 05/13/25 Range/Units 07:30 PT 16.1 H (11.1-14.7) Seconds APTT 31.4 (22.3-36.8) Seconds CBC 05/13/25 Range/Units 07:30 WBC 8.3 (4.5-10.0) K/mm3 RBC 4.48 L (4.6-6.20) M/mm3 Hgb 14.2 (14.0-18.0) g/dL Hct 42.9 (42.0-52.0) % Plt Count 204 (150-375) k/mm3 Lymph # (Auto) 1.75 (0.9-3.2) K/mm3 Stone # (Auto) 0.7 H (0.1-0.6) K/mm3 Eos # (Auto) 0.2 (0-0.3) K/mm3 Baso # (Auto) 0.0 (0.0-0.1) K/mm3 Comprehensive Metabolic Panel 05/13/25 Range/Units 07:30 Sodium 137 (137-145) mmol/L Potassium 3.8 (3.4-5.0) mmol/L Chloride 110 H (98-107) mmol/L Carbon Dioxide 20 L (22-30) mmol/L BUN 42 H (9-20) mg/dL Creatinine 1.53 H (0.7-1.3) mg/dL Glucose 145 H (65-110) mg/dL Calcium 8.9 (8.4-10.2) mg/dL AST 29 (17-59) U/L ALT 28 (6-50) U/L Alkaline Phosphatase 77 (38-126) U/L Total Protein 7.0 (6.3-8.2) g/dL Albumin 4.0 (3.5-5.1) g/dL Intake and Output 05/12/25 05/13/25 05/13/25 23:59 07:59 15:59 Intake Total 100 200 Balance 100 200 Intake: IV 100 200 Amiodarone 150 mg/D5w 100 ml 100 150 mg In 100 ml @ 0 mls/hr . ROUTE .STK-MED ONE Rx#: [id number] Amiodarone 360 mg/D5w 200 ml 200 360 mg In 200 ml @ 0 mls/hr . ROUTE .STK-MED ONE Rx#: [id number] Patient Weight 05/13/25 23:59 Weight 86.4 kg
--- NOTE | 2025-05-13 14:50 | PM.IMHP2 ---
H&P: HPI History of Present Illness Date/Time: 05/13/25 14:50 Chief Complaint: Shortness of breath Narrative: The patient is an 81-year-old history of hypertension, paroxysmal atrial fibrillation, congestive heart failure, severe mitral regurgitation status post MitraClip, hyperlipidemia presents with onset of shortness of breath S started 2 days ago mildly. Patient had been shoveling snow Saturday and Saturday, have been developing progressive shortness of breath that has been worsening more on exertion. This continued to worsen to the came to the ED for further evaluation. Per ED documentation patient said his heart was racing, he denied palpitations or chest pain as well as pedal edema when evaluated. However, patient was indeed tachycardic with runs of V-tach or AFib with aberrancy, he was cardioverted at 150 joules, which patient tolerated well and reverted to sinus rhythm with PVCs followed by just sinus rhythm. He was placed on amiodarone drip. Cardiology was consulted, who recommended discharge from cardiovascular point of a follow-up with his cardiovascular team at [facility] as he was now completely stable, in normal rhythm, without evidence of symptoms of shortness of breath. Review of Systems Review of Systems: All systems reviewed & are unremarkable except as noted in HPI and below [facility] Family History Family History (Updated 05/13/25 @ 12:38 by Josephine Hines RN) Mother Acute myocardial infarction Father Motor vehicle accident (victim) Daughter Diabetes mellitus Son Diabetes mellitus Social History Social History (System 07/22/20 @ 12:30 by Ananth Hough) Smoking packs per day: 1 Smoking cigarettes per day: 20.0 Years smoked: 31 Smoking pack-years: 31.00 Smoking status: Former smoker Tobacco type: cigarettes Second hand tobacco smoke exposure: No Smoking end date: 06/10/87 Alcohol intake: current Drinks per week: 3 Substance use: never Substance use type: does not use Lack of Transportation: No Lack of Food: Never True Current Housing: I Have Housing Concerned About Future Housing: No Difficulty Paying Gas/Electric Bills: No Difficulty Paying for Meds: No Currently Unemployed: No Education: Associate Degree Difficulty w/ Childcare or Family Care: No Spiritual care concerns: No Meds Home Medications and Allergies Home Medications ?Medication ?Instructions ?Recorded ?Confirmed ?Type apixaban 5 mg tablet (Eliquis) 5 mg PO Q12H 05/13/25 05/13/25 History calcium carb-ergocalciferol (vit 1 tablet PO BID 05/13/25 05/13/25 History D2) 600 mg calcium-200 unit tablet calcium polycarbophil 625 mg 1,250 mg PO HS 05/13/25 05/13/25 History tablet (Fiber (calcium polycarbophil)) cholecalciferol (vitamin D3) 25 1,000 unit PO DAILY 05/13/25 05/13/25 History mcg (1,000 unit) tablet (Vitamin D3) cholestyramine (with sugar) 4 gram 1 ea PO DAILY 05/13/25 05/13/25 History powder for susp in a packet cyanocobalamin (vitamin B-12) 1,000 mcg PO DAILY 05/13/25 05/13/25 History 1,000 mcg tablet (Vitamin B-12) finasteride 5 mg tablet 5 mg PO HS 05/13/25 05/13/25 History furosemide 20 mg tablet 20 mg PO DAILY 05/13/25 05/13/25 History gabapentin 100 mg capsule 100 mg PO Q8H 05/13/25 05/13/25 History lisinopril 40 mg tablet 40 mg PO DAILY 05/13/25 05/13/25 History meloxicam 15 mg tablet 15 mg PO DAILY 05/13/25 05/13/25 History metoprolol succinate 25 mg 25 mg PO DAILY 05/13/25 05/13/25 History tablet,extended release 24 hr omega-3 fatty acids 1,000 mg PO BID 05/13/25 05/13/25 History omeprazole 40 mg capsule,delayed 40 mg PO DAILY 05/13/25 05/13/25 History release simvastatin 20 mg tablet 20 mg PO QPM 05/13/25 05/13/25 History Allergies Allergy/AdvReac Type Severity Reaction Status Date / Time barley Allergy Unknown CELIAC Verified 05/13/25 12:35 DIS. FLAREUP No Known Drug Allergies Allergy Unknown Unknown Verified 05/13/25 12:35 wheat Allergy Unknown CELIAC Verified 05/13/25 12:35 DIS.FLAREUP [place] Allergy Unknown CELIAC Uncoded 07/22/20 12:30 DIS. FLAREUP Vital Signs Vital Signs - 24 hr 05/13/25 07:09 05/13/25 07:17 05/13/25 07:23 Temperature 97.6 F Pulse Rate 188 H 164 H 224 H Respiratory Rate 18 27 H Blood Pressure 99/76 L 99/76 L Pulse Oximetry 98 Oxygen Delivery Room Air 05/13/25 07:26 05/13/25 07:27 05/13/25 07:28 Temperature Pulse Rate 71 73 Respiratory Rate 24 H 19 Blood Pressure 104/78 105/68 Pulse Oximetry 100 99 94 Oxygen Delivery Room Air 05/13/25 07:30 05/13/25 07:31 05/13/25 07:32 Temperature Pulse Rate 68 74 72 Respiratory Rate 28 H 27 H 20 Blood Pressure 103/65 104/66 104/66 Pulse Oximetry 98 99 96 Oxygen Delivery 05/13/25 07:33 05/13/25 07:36 05/13/25 07:37 Temperature Pulse Rate 72 72 63 Respiratory Rate 23 H 22 H Blood Pressure 108/73 108/73 Pulse Oximetry 96 95 Oxygen Delivery 05/13/25 07:38 05/13/25 07:41 05/13/25 07:45 Temperature Pulse Rate 74 73 75 Respiratory Rate 14 23 H Blood Pressure 108/73 109/71 Pulse Oximetry 95 97 Oxygen Delivery 05/13/25 07:46 05/13/25 07:51 05/13/25 08:00 Temperature Pulse Rate 64 73 67 Respiratory Rate 18 15 27 H Blood Pressure 126/97 H 101/54 L Pulse Oximetry 98 94 98 Oxygen Delivery 05/13/25 08:11 05/13/25 08:15 05/13/25 08:26 Temperature Pulse Rate 74 61 71 Respiratory Rate 26 H 20 16 Blood Pressure 107/56 L 103/58 L Pulse Oximetry 90 96 93 Oxygen Delivery 05/13/25 08:30 05/13/25 08:31 05/13/25 08:36 Temperature Pulse Rate 69 63 64 Respiratory Rate 18 28 H 17 Blood Pressure 98/66 L 112/68 Pulse Oximetry 98 96 97 Oxygen Delivery 05/13/25 08:41 05/13/25 08:47 05/13/25 08:50 Temperature Pulse Rate 72 65 63 Respiratory Rate 22 H 19 20 Blood Pressure 102/68 109/63 Pulse Oximetry 99 97 96 Oxygen Delivery 05/13/25 08:56 05/13/25 08:57 05/13/25 09:00 Temperature Pulse Rate 64 64 77 Respiratory Rate 25 H 19 25 H Blood Pressure 117/59 L Pulse Oximetry 97 94 100 Oxygen Delivery 05/13/25 09:01 05/13/25 09:11 05/13/25 09:15 Temperature Pulse Rate 70 60 64 Respiratory Rate 22 H 24 H 24 H Blood Pressure 105/73 109/67 105/64 Pulse Oximetry 99 95 100 Oxygen Delivery 05/13/25 09:16 05/13/25 09:21 05/13/25 09:26 Temperature Pulse Rate 65 85 65 Respiratory Rate 24 H 20 20 Blood Pressure 99/68 L 112/62 Pulse Oximetry 97 97 Oxygen Delivery 05/13/25 09:30 05/13/25 09:31 05/13/25 09:37 Temperature Pulse Rate 61 65 63 Respiratory Rate 14 16 24 H Blood Pressure 111/63 109/63 Pulse Oximetry 97 97 99 Oxygen Delivery 05/13/25 09:40 05/13/25 09:46 05/13/25 09:47 Temperature Pulse Rate 65 66 67 Respiratory Rate 16 20 21 H Blood Pressure 105/63 141/79 H Pulse Oximetry 96 95 99 Oxygen Delivery 05/13/25 09:51 05/13/25 09:55 05/13/25 10:00 Temperature Pulse Rate 64 60 61 Respiratory Rate 20 16 17 Blood Pressure 113/65 109/58 L 109/59 L Pulse Oximetry 98 96 98 Oxygen Delivery 05/13/25 10:01 05/13/25 10:07 05/13/25 10:12 Temperature Pulse Rate 66 76 74 Respiratory Rate 17 20 23 H Blood Pressure 97/53 L 104/76 Pulse Oximetry 99 100 Oxygen Delivery 05/13/25 10:15 05/13/25 10:16 05/13/25 10:21 Temperature Pulse Rate 63 69 61 Respiratory Rate 17 23 H 25 H Blood Pressure 110/90 99/60 L Pulse Oximetry 98 97 97 Oxygen Delivery 05/13/25 10:25 05/13/25 10:31 05/13/25 10:36 Temperature Pulse Rate 63 67 68 Respiratory Rate 20 23 H 18 Blood Pressure 105/64 127/101 H Pulse Oximetry 98 97 99 Oxygen Delivery 05/13/25 10:41 05/13/25 10:45 05/13/25 10:46 Temperature Pulse Rate 63 60 66 Respiratory Rate 19 21 H 22 H Blood Pressure 118/70 111/60 Pulse Oximetry 97 96 96 Oxygen Delivery 05/13/25 10:55 05/13/25 10:56 05/13/25 11:00 Temperature Pulse Rate 62 67 62 Respiratory Rate 15 18 19 Blood Pressure 114/73 Pulse Oximetry 100 99 99 Oxygen Delivery 05/13/25 11:01 05/13/25 11:06 05/13/25 11:11 Temperature Pulse Rate 76 65 61 Respiratory Rate 17 24 H 22 H Blood Pressure 123/71 107/65 Pulse Oximetry 97 100 Oxygen Delivery 05/13/25 11:15 05/13/25 11:16 05/13/25 11:20 Temperature Pulse Rate 77 69 62 Respiratory Rate 24 H 22 H 23 H Blood Pressure 114/74 121/73 Pulse Oximetry 92 100 100 Oxygen Delivery 05/13/25 11:26 05/13/25 11:30 05/13/25 11:31 Temperature Pulse Rate 67 81 75 Respiratory Rate 24 H 33 H 22 H Blood Pressure 110/74 110/80 Pulse Oximetry 99 94 Oxygen Delivery 05/13/25 11:35 05/13/25 11:41 05/13/25 11:45 Temperature Pulse Rate 65 60 60 Respiratory Rate 23 H 16 25 H Blood Pressure 112/75 108/70 112/65 Pulse Oximetry 95 91 100 Oxygen Delivery 05/13/25 11:46 05/13/25 12:00 05/13/25 12:01 Temperature Pulse Rate 61 79 80 Respiratory Rate 19 23 H 25 H Blood Pressure 112/64 Pulse Oximetry 99 Oxygen Delivery 05/13/25 12:06 05/13/25 12:17 05/13/25 12:20 Temperature 97.8 F Pulse Rate 78 70 77 Respiratory Rate 22 H 20 18 Blood Pressure 119/74 109/60 110/55 L Pulse Oximetry 98 Oxygen Delivery 05/13/25 12:26 05/13/25 12:30 05/13/25 12:31 Temperature Pulse Rate 66 71 67 Respiratory Rate 24 H 18 Blood Pressure 107/50 L 109/60 Pulse Oximetry 96 Oxygen Delivery 05/13/25 12:32 05/13/25 12:36 05/13/25 12:40 Temperature Pulse Rate 66 66 66 Respiratory Rate 21 H 24 H 24 H Blood Pressure 97/66 L 106/60 Pulse Oximetry 100 99 Oxygen Delivery 05/13/25 12:45 05/13/25 12:46 05/13/25 12:51 Temperature Pulse Rate 66 66 66 Respiratory Rate 24 H 23 H 24 H Blood Pressure 108/61 103/68 Pulse Oximetry 91 100 Oxygen Delivery 05/13/25 12:55 05/13/25 12:58 05/13/25 13:00 Temperature Pulse Rate 64 65 67 Respiratory Rate 29 H 19 25 H Blood Pressure 112/65 112/65 Pulse Oximetry 97 98 97 Oxygen Delivery 05/13/25 13:01 05/13/25 13:06 05/13/25 13:10 Temperature Pulse Rate 61 62 64 Respiratory Rate 23 H 23 H 23 H Blood Pressure 102/51 L 109/54 L 114/64 Pulse Oximetry 100 100 100 Oxygen Delivery 05/13/25 13:15 05/13/25 13:16 05/13/25 13:33 Temperature Pulse Rate 64 66 74 Respiratory Rate 14 24 H Blood Pressure 112/63 Pulse Oximetry 100 99 Oxygen Delivery 05/13/25 13:36 05/13/25 13:39 Temperature 97.6 F Pulse Rate 67 70 Respiratory Rate 20 Blood Pressure 112/65 119/49 L Pulse Oximetry 99 Oxygen Delivery Exam Narrative: Constitutional: No distress, pleasant HEAD: Normal with no signs of head trauma. EYES: EOMI, conjunctiva normal ENT: Hearing grossly intact LUNGS: Clear to auscultation HEART: Regular ABD: Nondistended EXT: Normal range of motion. No pedal edema. SKIN: [No rashes or lesions.] NEURO: [Alert. No gross focal sensory or strength deficits.] PSYCH: Normal affect Results Labs Labs: Short CBC 05/13/25 Range/Units 07:30 WBC 8.3 (4.5-10.0) K/mm3 Hgb 14.2 (14.0-18.0) g/dL Hct 42.9 (42.0-52.0) % Plt Count 204 (150-375) k/mm3 BMP 05/13/25 07:30 Sodium 137 Potassium 3.8 Chloride 110 H Carbon Dioxide 20 L BUN 42 H Creatinine 1.53 H Glucose 145 H Calcium 8.9 Cardiac Enzymes 05/13/25 05/13/25 Range/Units 07:30 11:04 Troponin I 0.147 H* 0.134 H* (0.000-0.034) ng/mL Liver Function 05/13/25 Range/Units 07:30 Total Bilirubin 0.6 (0.2-1.3) mg/dL AST 29 (17-59) U/L ALT 28 (6-50) U/L Alkaline Phosphatase 77 (38-126) U/L Albumin 4.0 (3.5-5.1) g/dL Assessment and Plan Assessment and plan (1) Tachyarrhythmia: Code(s): R00.0 - Tachycardia, unspecified Status: Acute Assessment and Plan: Patient was cardioverted in the emergency room for ventricular tachycardia versus AFib with aberrancy, which was successful resulted in uatsdin to sinus rhythm. Patient is now comfortable without symptoms. Seen by Cardiology who recommends discharge with outpatient follow-up with his primary cardiovascular team at [facility]. Amiodarone has been discontinued. -follow-up outpatient with Cardiology at [facility] -no new medications have been recommended at this time as patient is in sinus rhythm (2) Paroxysmal atrial fibrillation: Code(s): I48.0 - Paroxysmal atrial fibrillation Status: Acute Assessment and Plan: History of AFib on apixaban metoprolol -continue both (3) Severe mitral regurgitation: Code(s): I34.0 - Nonrheumatic mitral (valve) insufficiency Status: Acute Assessment and Plan: Status post MitraClip -cardiology recommends patient can follow-up with his primary cardiology team (4) Chronic diastolic heart failure: Code(s): I50.32 - Chronic diastolic (congestive) heart failure Status: Acute Assessment and Plan: And got dose of Lasix IV in the ED, now euvolemic without shortness of breath. Symptoms likely were more due to tachyarrhythmia the CHF exacerbation given rapid improvement after cardioversion. -oral Lasix (5) HTN (hypertension): Code(s): I10 - Essential (primary) hypertension Status: Acute Assessment and Plan: History of hypertension on metoprolol succinate 25 mg daily -continue above (6) HLD (hyperlipidemia): Code(s): E78.5 - Hyperlipidemia, unspecified Status: Acute Assessment and Plan: On simvastatin Continue simvastatin Plan Patient was admitted to IMU as was initially was on amiodarone drip. Given this is now discontinued will transfer patient to floor with telemetry monitoring and monitor overnight for further events. Discharge tomorrow if remains stable on home meds DVT prophylaxis: Apixaban Diet: Heart healthy Prior Studies I have reviewed the following patient records and this information was taken into consideration when formulating the assessment and plan.: previous labs, previous hospitalizations and previous clinic visits Consultations Consultations: I have discussed the care of this pt with the consulting providers. Hospitalist MIPS Advance Care Plan I have confirmed that the patient's Advanced Care Plan is present, code status is documented, or surrogate decision maker is listed in patient medical record.: Yes Medication Reconciliation I have utilized all available resources to obtain, update and review the patients current medications (includes all prescriptions, OTC, herbals, cannabis, and nutritional supplements).: Yes
[2025-05-13] MEDS: OMEGA 3 POLYUNSAT FATTY ACIDS 1 GM CAP PO (17:31)
[2025-05-13] MEDS: PANTOPRAZOLE 40 MG TABLET PO (17:31)
[2025-05-13] MEDS: CALCIUM/VITAMIN D 500 MG/5 MCG (200 I.U.) TABLET PO (17:31)
[2025-05-13] MEDS: SIMVASTATIN 20 MG TABLET PO (17:31)
[2025-05-13] MEDS: FINASTERIDE 5 MG TABLET PO (21:50)
[2025-05-13] MEDS: APIXABAN 5 MG TABLET PO (21:50)
[2025-05-13] MEDS: GABAPENTIN 100 MG CAPSULE PO (21:50)
[2025-05-14] VITALS (8 sets, daily range): BP systolic 103–125; BP diastolic 68–72; PULSE 72–102; RESP 16–20; TEMP 36.3–36.6; O2SAT 95–96
[2025-05-14 05:49] LABS: Hematocrit 36.2 % (42.0-52.0); Hemoglobin 12.1 g/dL (14.0-18.0); Mean Corpuscular HGB Conc 33.4 g/dl (32-36); Mean Corpuscular Hemoglobin 31.0 pg (26-34); Mean Corpuscular Volume 92.8 fl (80-100); Platelet Count Result 175 k/mm3 (150-375); Red Blood Count 3.90 M/mm3 (4.6-6.20); White Blood Count 8.0 K/mm3 (4.5-10.0)
[2025-05-14 06:23] LABS: Alanine Aminotransferase 33 U/L (6-50); Albumin Level 3.3 g/dL (3.5-5.1); Alkaline Phosphatase 82 U/L (38-126); Anion Gap 3 mmol/L (4-12); Aspartate Amino Transferase 28 U/L (17-59); Bilirubin,Total 0.9 mg/dL (0.2-1.3); Blood Urea Nitrogen 31 mg/dL (9-20); Calcium 8.4 mg/dL (8.4-10.2); Carbon Dioxide 21 mmol/L (22-30); Chloride 112 mmol/L (98-107); Estimated CRCL calculation 36 ml/min; Estimated Glomerular Filt Rate 50; Glucose 93 mg/dL (65-110); Potassium 3.9 mmol/L (3.4-5.0); Sodium 136 mmol/L (137-145); Total Protein 6.1 g/dL (6.3-8.2)
[2025-05-14] MEDS: GABAPENTIN 100 MG CAPSULE PO (06:51)
[2025-05-14] MEDS: CALCIUM/VITAMIN D 500 MG/5 MCG (200 I.U.) TABLET PO (08:59)
[2025-05-14] MEDS: OMEGA 3 POLYUNSAT FATTY ACIDS 1 GM CAP PO (09:03)
[2025-05-14] MEDS: CYANOCOBALAMIN 1,000 MCG TABLET 1000 MCG PO (09:03)
[2025-05-14] MEDS: CHOLESTYRAMINE (W/ SUGAR) 4 GM POWD.PACK PO (09:03)
[2025-05-14] MEDS: PANTOPRAZOLE 40 MG TABLET PO (09:03)
[2025-05-14] MEDS: APIXABAN 5 MG TABLET PO (09:03)
[2025-05-14] MEDS: METOPROLOL SUCCINATE EXT REL 25 MG TABCR PO (09:06)
[2025-05-14] MEDS: FUROSEMIDE 20 MG TABLET PO (09:07)
[2025-05-14] MEDS: CHOLECALCIFEROL (VITAMIN D3) 25 MCG (1,000 UNITS) TABLET PO (09:08)
--- NOTE | 2025-05-14 13:37 | PM.DS ---
DS: Admitting Diagnosis Discharge Date 05/14/25 Admitting Diagnosis Atrial Fibrillation with aberrancy DS: Discharge Diagnosis Discharge Diagnosis (1) Tachyarrhythmia: Code(s): R00.0 - Tachycardia, unspecified Status: Acute Assessment and Plan: Patient was cardioverted in the emergency room for ventricular tachycardia versus AFib with aberrancy, which was successful resulted in mu-ism to sinus rhythm. Patient is now comfortable without symptoms. Seen by Cardiology who recommends discharge with outpatient follow-up with his primary cardiovascular team at [facility]. Amiodarone has been discontinued. Monitored overnight, returned to atrial fibrillation with normal HR. No complaints overnight. -follow-up outpatient with Cardiology at [facility] -no new medications have been recommended at this time as patient is in sinus rhythm (2) Paroxysmal atrial fibrillation: Code(s): I48.0 - Paroxysmal atrial fibrillation Status: Acute Assessment and Plan: History of AFib on apixaban metoprolol -continue both follow-up outpatient with Cardiology at [facility] (3) Severe mitral regurgitation: Code(s): I34.0 - Nonrheumatic mitral (valve) insufficiency Status: Acute Assessment and Plan: Status post MitraClip -cardiology recommends patient can follow-up with his primary cardiology team (4) Chronic diastolic heart failure: Code(s): I50.32 - Chronic diastolic (congestive) heart failure Status: Acute Assessment and Plan: Got dose of Lasix IV in the ED, now euvolemic without shortness of breath. Symptoms likely were more due to tachyarrhythmia the CHF exacerbation given rapid improvement after cardioversion. -oral Lasix prn (5) HTN (hypertension): Code(s): I10 - Essential (primary) hypertension Status: Acute Assessment and Plan: History of hypertension on metoprolol succinate 25 mg daily -continue above (6) HLD (hyperlipidemia): Code(s): E78.5 - Hyperlipidemia, unspecified Status: Acute Assessment and Plan: On simvastatin Continue simvastatin DS: Summary Hospital Course Hospital Course: The patient is an 81-year-old history of hypertension, paroxysmal atrial fibrillation, congestive heart failure, severe mitral regurgitation status post MitraClip, hyperlipidemia presents with onset of shortness of breath S started 2 days ago mildly. Patient had been shoveling snow Saturday and Saturday, have been developing progressive shortness of breath that has been worsening more on exertion. This continued to worsen to the came to the ED for further evaluation. Per ED documentation patient said his heart was racing, he denied palpitations or chest pain as well as pedal edema when evaluated. However, patient was indeed tachycardic with runs of V-tach or AFib with aberrancy, he was cardioverted at 150 joules, which patient tolerated well and reverted to sinus rhythm with PVCs followed by just sinus rhythm. He was placed on amiodarone drip. Cardiology was consulted, who recommended discharge from cardiovascular point of a follow-up with his cardiovascular team at [facility] as he was now completely stable, in normal rhythm, without evidence of symptoms of shortness of breath. Patient was admitted overnight for observation as amiodarone drip was discontinued after return to sinus rhythm. No events overnight, patient is in AFib but not in RVR, stable, without any symptoms at this time. Cardiology was notified, no new recommendations at this time. Will discharge with adequate cardiology follow-up. Status at Discharge Cognitive/behavioral status at discharge: Stable Time Spent with Patient Time attestation: Total time spent providing and/or coordinating discharge services: Exam Narrative: Constitutional: No distress, pleasant HEAD: Normal with no signs of head trauma. EYES: EOMI, conjunctiva normal ENT: Hearing grossly intact LUNGS: Clear to auscultation HEART: Regular ABD: Nondistended EXT: Normal range of motion. No pedal edema. SKIN: [No rashes or lesions.] NEURO: [Alert. No gross focal sensory or strength deficits.] PSYCH: Normal affect DS: Data Data Completed and Pending Labs on day of discharge: Labs from last 24 hours 05/14/25 05:43 WBC 8.0 RBC 3.90 L Hgb 12.1 L Hct 36.2 L MCV 92.8 MCH 31.0 MCHC 33.4 RDW 14.7 H Plt Count 175 MPV 9.9 Sodium 136 L Potassium 3.9 Chloride 112 H Carbon Dioxide 21 L Anion Gap 3 L BUN 31 H D Creatinine 1.34 H Estim Creat Clear Calc 36 Estimated GFR 50 L Glucose 93 Calcium 8.4 Total Bilirubin 0.9 AST 28 ALT 33 Alkaline Phosphatase 82 Total Protein 6.1 L Albumin 3.3 L Discharge Plan Discharge Attending physician on discharge: Zuleyma,Leo B. Consulting providers: Radha Soria Discharging Clinician: Leo Schmidt Oca Patient Disposition: Home Activity: as tolerated Diet: heart healthy Discharge Instructions: Please follow up with your cardiology team at [facility] within 1-2 weeks for continued management of your heart conditions. Patient Instructions: Antibiotic Form, Blood Thinners (GEN) Patient Language: Nauruan Stand Alone Forms: General Discharge Information Follow-up/Referrals: Lico,Georges Islas MD [Primary Care Provider, Unknown] Discharge Medications: New calcium carbonate-vitamin D3 [Oyster Shell Calcium-Vit D3] 500 mg-5 mcg (200 unit) Tablet 1 tablet PO BID 30 Days Qty: 60 0RF omega-3 acid ethyl esters 1 gram Capsule 1 g PO BID 30 Days Qty: 60 0RF Continued Eliquis 5 mg tablet 5 mg PO Q12H 30 Days Qty: 0 0RF finasteride 5 mg tablet 5 mg PO HS 30 Days Qty: 0 0RF gabapentin 100 mg capsule 100 mg PO Q8H 30 Days Qty: 0 0RF metoprolol succinate 25 mg tablet extended release 24 hr 25 mg PO DAILY 30 Days Qty: 0 0RF omeprazole 40 mg capsule,delayed release(DR/EC) 40 mg PO DAILY 30 Days Qty: 0 0RF calcium polycarbophil [Fiber (calcium polycarbophil)] 625 mg tablet 1,250 mg PO HS 30 Days Qty: 0 0RF cholestyramine (with sugar) 4 gram powder in packet 1 ea PO DAILY 30 Days Qty: 0 0RF lisinopril 40 mg tablet 40 mg PO DAILY 30 Days Qty: 0 0RF simvastatin 20 mg tablet 20 mg PO QPM 30 Days Qty: 0 0RF cyanocobalamin (vitamin B-12) [Vitamin B-12] 1,000 mcg tablet 1,000 mcg PO DAILY 30 Days Qty: 0 0RF cholecalciferol (vitamin D3) [Vitamin D3] 25 mcg (1,000 unit) tablet 1,000 unit PO DAILY 30 Days Qty: 0 0RF Changed furosemide 20 mg tablet 20 mg PO DAILY PRN (Reason: shortness of breath) 30 Days Qty: 0 0RF Discontinued meloxicam 15 mg tablet 15 mg PO DAILY calcium carbonate-vitamin D2 600 mg calcium- 200 unit tablet 1 tablet PO BID omega-3 fatty acids Capsule 1,000 mg PO BID Date of admission: 05/13/25 08:50 Primary Care Provider: Lico,Georges Islas Admitting Provider: Leo Schmidt Oca Attending physician on admission: Leo Schmidt Oca Condition: Improved Hospitalist MIPS Heart Failure (Exclusion) Patient has history of Heart Transplant or Left Ventricular Assistive Device?: No IF YES, STOP HERE Heart Failure (Qualifier) Patient has current or prior documentation of LVEF less than or equal to 40%, or mod/servere depressed LVSF?: No IF NO, STOP HERE
== END 2025-05-14 14:45 | disposition home or self-care (01) ==
LOC: ANHED 08:31 → ANHIMU 10:06 → ANH3MED 15:46
PROVIDERS: Admitting Provider Student in an Organized Health Care Education/Training Program; Emergency Provider Emergency Medicine; PCP Internal Medicine; Visit Provider Student in an Organized Health Care Education/Training Program
DX: R00.0 Tachycardia, unspecified (principal); I48.0 Paroxysmal atrial fibrillation; I34.0 Nonrheumatic mitral (valve) insufficiency; I11.0 Hypertensive heart disease with heart failure; I50.33 Acute on chronic diastolic (congestive) heart failure; E78.5 Hyperlipidemia, unspecified; Z79.01 Long term (current) use of anticoagulants; Z87.891 Personal history of nicotine dependence; Z83.3 Family history of diabetes mellitus; Z82.49 Family history of ischemic heart disease and other diseases of the circulatory system
CPT/HCPCS: 36415; 37195; 71045; 80053; 83880; 84484; 85025; 85027; 85610; 85730; 93005; 96361; 96365; 96366; 96374; 96375; 99285; A9270; G0378; J0283; J1938; J7030